=== PATIENT | female | born 1940 | race Caucasian/White ===

== ENCOUNTER → 2019-07-16 10:23 | Outpatient (CLI) | payer MEDICARE, OTHER ==
[2015-12-20 12:52] VITALS: BMI 24.8
[~2019-07-16 10:23] MED LIST: ASPIRIN325 MG PO; GLIMEPIRIDE2 MG PO; JANUVIA25 MG PO; LANTUS INSULIN10 ML SC; NORVASC10 MG; NORVASC10 MG PO; PRINIVIL20 MG PO
--- NOTE | 2019-07-18 08:45 | EC ---
PATIENT:RODOLFO YEBOAH DATE OF SERVICE: 07/16/19 SEX: F MEDICAL RECORD: [id number] DATE OF : 38 [facility] AGE OF PATIENT: 79 ADMISSION DATE: 07/16/19 REFERRING PHYSICIAN: INTERPRETING PHYSICIAN: BRIDGETT FROST MD ECHOCARDIOGRAM REPORT ECHO CHARGES 4 ECHO COMPLETE Date: 07/16/19 CLINICAL DIAGNOSIS: HTN HC OF CAD/TRACES OF MR / TR ECHOCARDIOGRAPHIC MEASUREMENTS (adult normal given) AC root (d.<3.7cm) 2.8 cm LV Septum d (<1.2 cm> 1.1 cm Valve Excursion 1.4 cm LV Septum (systole) 1.3 cm Left Atria (s.<4.0cm> 3.2 cm LVPW d(<1.2cm) 1.3 cm RV (d.<2.3cm) 3.7 cm LVPW (sytole) 1.8 cm LV diastole(<5.6CM) 4.6 cm MV E-F(>70mm/sec) cm LV systole 2.8 cm LVOT Diameter 1.4 cm MV exc.(>10mm) 1.1 cm Est.ejection fraction (50-75%) % DOPPLER: LVIT cm/sec A 125 cm/sec E 84.0 cm/sec LA cm/sec RVSP 30 mmHg LVOT 148 cm/sec AOP1/2T m/s Asc. Ao 213 cm/sec RVOT 81 cm/sec RA cm/sec PA 103 cm/sec AV Gradient Peak 18.08mmHg AV Mean 11.77mmHg AV Area 1.2 cm MV Gradient Peak 7.58 mmHg MV Mean 3.06 mmHg MV Area cm COMMENTS: Automotive Teacher: Salima PERALTA Credentialing Coordinator: 3 Dr. Hutson TAPE# PACS Pericardial Effusion N DATE OF SERVICE: 07/16/2019 Adequate 2D, color flow imaging, spectral Doppler, and M-Mode No LVH. LV internal dimensions are normal. Wall motion is normal. EF is greater than or equal to 55%. Aortic valve is tricuspid. No evidence of stenosis by Doppler interrogation. Left atrium is normal at 3.2 cm. Mitral valve shows no prolapse. Trace MR. Right-sided chambers are grossly normal. Mild TR. ECHOCARDIOGRAM REPORT [id number] RODOLFO YEBOAH TRANSINT:[id number] Voice Confirmation ID: [id number] DOCUMENT ID: [id number] BRIDGETT FROST MD at 0845 CC: [id number] DICTATION DATE: 07/17/19 1357 BRIQUETTE MACHINE OPERATOR HELPER: 07/17/19 1540 DEP CLI 07/16/19 [place] [id number] [place] [id number]
== END | disposition home or self-care (01) ==
LOC: D.HCCECHO 10:23
PROVIDERS: ATTEND Internal Medicine Interventional Cardiology
DX: I10 Essential (primary) hypertension (principal)

== ENCOUNTER 2020-06-07 15:07 | Emergency (ER) | payer MEDICARE, OTHER ==
[~2020-06-07] VITALS: Ht 160 cm; Wt 60.0 kg
[2020-06-07 15:18] VITALS: Ht 160 cm; Wt 60.0 kg
[2020-06-07] MEDS ORDERED: BAYER CHEWABLE81 MG PO (15:21)
[2020-06-07] MEDS ORDERED: TRADJENTA5 MG PO (15:22)
[2020-06-07] MEDS ORDERED: BASAGLAR K100 UNIT/1 SC (15:22)
[2020-06-07 15:56] LABS: BASOPHILS 0 % (0-2); EOSINOPHILS 0 % (0-7); HEMOGLOBIN 11.2 g/dL (12-16); IMMATURE GRANULOCYTES 0.6 % (0-5); LYMPHOCYTES 2.5 % (15-50); MCH 23.2 pg (26.0-34.0); MCV 72.5 fL (80.0-100.0); MEAN PLATELET VOLUME 9.6 fL (7.4-10.4); NEUTROPHILS 91.9 % (40-80); RBC 4.83 10x6/uL (4.00-5.40); RDW 17.1 % (11.5-14.5); WBC 14.5 10x3/uL (4.8-10.8)
[2020-06-07 15:58] LABS: PLATELET COUNT 374 10x3/uL (130-400)
[2020-06-07 16:28] LABS: ALBUMIN 2.8 g/dL (3.4-5.0); ALKALINE PHOSPHATASE 74 U/L (30-120); ALT (SGPT) 28 U/L (10-68); BILIRUBIN - TOTAL 0.48 mg/dL (0.2-1.3); CALC OSMOLALITY 270 mosm/kg (275-300); CALCIUM 8.2 mg/dL (8.5-10.1); CHLORIDE - SERUM 94 mmol/L (98-107); CKMB 1.2 U/L (0.0-3.6); CREATINE KINASE 48 UL (21-215); CREATININE - SERUM 1.4 mg/dL (0.6-1.3); MAGNESIUM - SERUM 1.9 mg/dL (1.8-2.4); POTASSIUM - SERUM 4.8 mmol/L (3.5-5.1); PROTEIN - SERUM 5.6 g/dL (6.4-8.2); SODIUM 123 mmol/L (136-145); TROPONIN-I < 0.017 ng/mL (0.000-0.060); UREA NITROGEN 25 mg/dL (7-18); eGFR NON AFRICAN AMERICAN 38 mL/min (90-120)
[2020-06-07 16:30] LABS: GLUCOSE 437 mg/dL (74-106)
[2020-06-07 16:57] LABS: BILIRUBIN NEGATIVE (NEGATIVE); GLUCOSE 1000 mg/dL (NEGATIVE); KETONE NEGATIVE (NEGATIVE); NITRITE POSITIVE (NEGATIVE); UROBILINOGEN NORMAL (NORMAL)
[2020-06-07 16:58] LABS: EPITHELIAL CELLS 0-5 /hpf (0-5); RED CELLS - URINE 0-5 /hpf (0-5); WHITE CELLS - URINE 0-5 /hpf (NEGATIVE)
[2020-06-07 16:59] LABS: BACTERIA MANY /hpf (NEGATIVE)
[2020-06-07] MEDS ORDERED: MACROBID100 MG PO (18:01)
[2020-06-07 19:15] VITALS: BP 161/79
== END 2020-06-07 19:15 | disposition home or self-care (01) ==
LOC: D.ER 15:07
PROVIDERS: Family Medicine
DX: N39.0 Urinary tract infection, site not specified (principal); E11.65 Type 2 diabetes mellitus with hyperglycemia; R53.1 Weakness; Z79.4 Long term (current) use of insulin; I10 Essential (primary) hypertension

== ENCOUNTER 2020-06-08 17:10 | Inpatient (IN) | payer MEDICARE, OTHER ==
[~2020-06-08] VITALS: Ht 160 cm; Wt 59.9 kg
[~2020-06-08 17:10] MED LIST changes: +BASAGLAR K100 UNIT/1 SC; +BAYER CHEWABLE81 MG PO; +MACROBID100 MG PO; +TRADJENTA5 MG PO
--- NOTE | 2020-06-08 17:15 | NUR ---
POC GLUCOSE 405
[2020-06-08 17:32] LABS: BASOPHILS 0 % (0-2); EOSINOPHILS 0 % (0-7); HEMATOCRIT 34.9 % (36.0-48.0); HEMOGLOBIN 11.2 g/dL (12-16); IMMATURE GRANULOCYTES 0.6 % (0-5); LYMPHOCYTES 5.7 % (15-50); MCH 23.1 pg (26.0-34.0); MCHC 32.1 g/dL (31.0-37.0); MCV 72.1 fL (80.0-100.0); MEAN PLATELET VOLUME 9.7 fL (7.4-10.4); NEUTROPHILS 90.7 % (40-80); PLATELET COUNT 355 10x3/uL (130-400); RBC 4.84 10x6/uL (4.00-5.40); RDW 17.4 % (11.5-14.5); WBC 13.5 10x3/uL (4.8-10.8)
[2020-06-08 17:48] LABS: ALBUMIN 2.8 g/dL (3.4-5.0); ANION GAP 10.6 mmol/L (8-16); BILIRUBIN - TOTAL 0.5 mg/dL (0.2-1.3); CALCIUM 8.5 mg/dL (8.5-10.1); CARBON DIOXIDE 24.2 mmol/L (21.0-32.0); CREATININE - SERUM 1.3 mg/dL (0.6-1.3); MAGNESIUM - SERUM 1.9 mg/dL (1.8-2.4); POTASSIUM - SERUM 4.8 mmol/L (3.5-5.1); PROTEIN - SERUM 5.6 g/dL (6.4-8.2)
[2020-06-08 17:56] LABS: GLUCOSE 1000 mg/dL (NEGATIVE); NITRITE NEGATIVE (NEGATIVE)
[2020-06-08 17:57] LABS: BILIRUBIN NEGATIVE (NEGATIVE); KETONE NEGATIVE (NEGATIVE); UROBILINOGEN NORMAL (NORMAL)
[2020-06-08 18:16] LABS: CKMB 1.3 U/L (0.0-3.6); CREATINE KINASE 66 UL (21-215); PRO BNP 495 pg/mL (0-450)
[2020-06-08 18:19] VITALS: BP 171/107
[2020-06-08 18:30] LABS: TROPONIN-I < 0.017 ng/mL (0.000-0.060)
--- NOTE | 2020-06-08 18:44 | NUR ---
VERIFIED WITH BEBO, BLIND HANGER RE ORDER FOR NS X 2 LITERS. ONLY 1 LITER ORDERED
--- NOTE | 2020-06-08 19:17 | NUR ---
BS REPORT TO LARRY HAAS
[2020-06-08 20:15] VITALS: BP 143/64
[2020-06-08 22:44] VITALS: BP 154/72
[2020-06-09] VITALS (7 sets, daily range): BP systolic 118–166; BP diastolic 42–89; Ht 160 cm; Wt 59.9 kg
--- NOTE | 2020-06-09 11:16 | NUR ---
RESTING IN BED, NO DISTRESS NOTED, SKIN WARM AND DRY, C/O LEGS BEING WEAK, STATES THAT SHE HAS HAD BACK SURGERY A FEW YEARS AGO, IV PER R HAND, PT TO SEE
--- NOTE | 2020-06-09 14:32 | NUR ---
SON HERE ASK IF PT GOES TO [facility]AB [facility]
[2020-06-10] VITALS: BP 131/58
[2020-06-10 04:00] VITALS: BP 158/55
--- NOTE | 2020-06-10 04:43 | NUR ---
I have reviewed this patient and I concur with the Shift Assessment completed by the Licensed Practical Nurse today this shift.
--- NOTE | 2020-06-10 07:42 | NUR ---
SHE IS ALERT, TALKING. SHE DENIES ANY NEEDS. THE CALL LIGHT IS WITHIN REACH.
--- NOTE | 2020-06-10 08:13 | HP ---
PATIENT: RODOLFO YEBOAH MEDICAL RECORD: [id number] ACCOUNT: [id number] LOCATION:[facility] Chao2203 : 38 ADMISSION DATE: 06/09/20 PCP: RONNIE MACIAS HISTORY AND PHYSICAL EXAMINATION REASON FOR ADMISSION: Uncontrolled blood sugar and weakness. HISTORY OF PRESENT ILLNESS: The patient is an 80-year-old female, type 2 diabetic, who has history of lumbar disc disease. She had received a steroid injection last week in the office for sciatica symptoms. She had felt more confused and tired since that time and went to the ER the night before last with blood sugar in excess of 400. She was given fluids and insulin and her blood sugars dropped in the 200 range and she was discharged back home. Yesterday, she was unable to control her blood sugars despite increasing her Basaglar, came back to the ER last night with a blood sugar of over 400. She was nonketotic but appeared weak and Edmar GAGNON, recommended admission. She also was noted to have UTI and was on antibiotics for that as well. She denies fever. She says she is having difficulty transferring out of bed due to the back pain. She does use a walker. PAST MEDICAL HISTORY: Breast cancer; angina pectoris; type 2 diabetes mellitus; osteoarthritis of knees, post knee replacement; essential hypertension; history of PTCA for CAD; hyperlipidemia; cataracts, both eyes, postoperative; history of recurrent complicated UTI; blood loss anemia; GERD; hyperlipidemia. PAST SURGICAL HISTORY: Had retinal surgery. Has had lumbar discectomy; appendectomy; hysterectomy; breast lumpectomy for cancer; total knee arthroplasty; PTCA times 2; cataract extraction, both eyes; and cystourethroscopy with fulguration. FAMILY HISTORY: Father of heart disease and had diabetes. Mother had breast cancer. Sister with breast cancer. She is a nonsmoker and nondrinker currently. HOME MEDICATIONS: Tramadol 50 mg q.6 for pain, Decadron 4 mg tablets tapering 1/2 tab daily for 7 days, lisinopril 20 mg a day, Basaglar 15 units subQ at bedtime, Tradjenta 5 mg p.o. daily, aspirin 81 mg daily, amlodipine 10 mg daily, omeprazole 20 mg p.o. q.a.m. a.c. ALLERGIES: PENICILLIN AND SULFA. OTHER MEDICATIONS: Currently, she is on Macrobid 100 mg b.i.d. started 2 days ago. REVIEW OF SYSTEMS: CONSTITUTIONAL: No fever, but marked weakness and confusion. HEENT: No recent visual change, sinus congestion, or sore throat. RESPIRATORY: No SOB or cough. CARDIAC: No chest pain or claudication. GASTROINTESTINAL: Some nausea without vomiting, change in stools, or constipation. GENITOURINARY: She has had urinary urgency and some dysuria. No hematuria. Denies flank pain. MUSCULOSKELETAL: Chronic lumbago with sciatica currently in the right at the level of the knee. She admits to some pain on transfers and difficulty walking HISTORY AND PHYSICAL [id number] RODOLFO YEBOAH without a rolling walker. PSYCHIATRIC: Denies depressed mood. PHYSICAL EXAMINATION: GENERAL: Alert 80-year-old female at this time, in no acute distress. VITAL SIGNS: Show temperature 98.1 Fahrenheit, pulse of 60, respirations of 18, blood pressure 134/65 with a sat of 95% on room air. HEENT: Normocephalic. Eyes are clear with lens implants, both eyes. Sclerae nonicteric. NECK: Supple. No bruits. CHEST: Clear with distant breath sounds. HEART: Regular rate and rhythm. ABDOMEN: Soft, nontender. No organomegaly or masses. GENITOURINARY: Deferred. EXTREMITIES: No CC&E. MUSCULOSKELETAL: She has some pain in the lower lumbar spine, radiates into buttocks with straight leg raise at 45 degrees. Slight decrease in strength in both quadriceps bilaterally. Evidence of previous knee arthroplasty noted. NEUROLOGICAL: Oriented to person, place, and time. Cranial nerves grossly intact. Gait is wide based and somewhat unsteady. LABORATORY DATA: White count is 13,000; H&H of 11 and 34.9. Blood sugar was 495. Cardiac enzymes were negative. Urine on 06/07 reveals bacteria and pyuria. Serum ketones were negative. Urinalysis showed 0-5 white and red cells, nitrite positive. Culture is pending. ASSESSMENT: 1. Uncontrolled diabetes mellitus. 2. Urinary tract infection. 3. Sciatica, lumbar disc disease, and steroids probably exacerbating hyperglycemia. 4. Hypertension, hyperlipidemia, history of COPD, clinically stable. PLAN: The patient will be admitted for sliding scale insulin, pain management, PT consult. NTS:[id number] Voice Confirmation ID: [id number] DOCUMENT ID: [id number] PILAR BHAT MD at 0813 CC: [id number] DICTATION DATE: 06/09/20732 COMPONENT LAB TECH: 06/09/20 213 ADM IN [place] [id number] [place] [address]
[2020-06-10 09:36] VITALS: BP 124/46
--- NOTE | 2020-06-10 12:09 | MORECARE ---
CASE MANAGEMENT DISCHARGE SUMMARY PATIENT: RODOLFO YEBOAH UNIT: [id number] ADM DATE: 06/09/20 AGE: 80 : 39 SEX: F ROOM/BED: D.2203 AUTHOR: ELIDA TORIBIO PHYSICIAN: REFERRING PHYSICIAN: RONNIE MACIAS MD DATE OF SERVICE: 06/10/20 Discharge Plan Patient Name: RODOLFO YEBOAH [facility] [facility] 1940 Planned Disposition: Residential Facility Anticipated Discharge Date: Discharge Date: Expected LOS: Initial Reviewer: [email or web address] Initial Review Date: 06/08/2020 Generated: 06/10/20 1:08 pm DCPIA - Discharge Planning Initial Assessment Updated by [email or web address]: Irene Cain on 06/10/20 12:05 pm * Is the patient Alert and Oriented? Yes * How many steps to enter\exit or inside your home? 2/RAMP * PCP [facility] * Pharmacy [facility] [address] * Preadmission Environment Home Alone * ADLs Independent * Equipment Glucometer Rolling Walker * List name and contact numbers for known caregivers / representatives who currently or will assist patient after discharge: JACKIE ( SON) [phone] * Verbal permission to speak to the caregivers and representatives has been obtained from the patient. N/A * Community resources currently utilized None * Additional services required to return to the preadmission environment? Yes * Can the patient safely return to the preadmission environment? Yes * Has this patient been hospitalized within the prior 30 days at any hospital? No Patient Name: RODOLFO YEBOAH Page 12250 at 1209 All edits/amendments must be made on the electronic document DICTATION DATE: 06/10/20 1208 PARKING METER MECHANIC: DAMIÁN 06/10/20 1208 RPT#: [id number] DC DATE: STATUS: ADM IN [facility] [address] [place] [address] END OF REPORT
--- NOTE | 2020-06-10 12:16 | MORECARE ---
CASE MANAGEMENT DISCHARGE SUMMARY PATIENT: RODOLFO YEBOAH UNIT: [id number] ADM DATE: 06/09/20 AGE: 80 : 39 SEX: F ROOM/BED: D.2203 AUTHOR: MALU,DOC PHYSICIAN: REFERRING PHYSICIAN: RONNIE MACIAS MD DATE OF SERVICE: 06/10/20 Discharge Plan Patient Name: RODOLFO EYBOAH Facility: [facility]:[place] : 1940 Planned Disposition: Fpc Facility Anticipated Discharge Date: Discharge Date: Expected LOS: Initial Reviewer: [email or web address] Initial Review Date: 06/08/2020 Generated: 06/10/20 1:15 pm Comments DCP- Discharge Planning Updated by [email or web address]: Irene Cain on 06/10/20 11:[address] Patient Name: RODOLFO YEBOAH Admission Status: ER Accout number: [id number] Admission Date: 06-09-2020 : 1940 Admission Diagnosis: Attending: RONNIE MACIAS Current LOS: 1 Anticipated DC Date: Planned Disposition: Fpc Facility Primary Insurance: MEDICARE A & B Discharge Planning Comments: CM met with patient & son to complete initial dc planning assessment. CM educated patient on the CM role and verbal consent given by patient to complete assessment. Patient lives at home alone where she was independent with her care. At discharge patient plans to return home after rehab and feels this is a safe discharge. CM discussed availability of home health, rehab services, and medical equipment. They would like to go to [facility]hab [facility] when she is discharged from the hospital. I will send referral to [facility]. IMM signed and served, BENY also signed and served. Patient denied known discharge needs at this time. CM will continue to follow and will assist as needed with dc plans/needs. Plant Etiologist: Irene Cain DCPIA - Discharge Planning Initial Assessment Updated by [email or web address]: Irene Cain on 06/10/20 12:05 pm * Is the patient Alert and Oriented? Yes * How many steps to enter\exit or inside your home? 2/RAMP * PCP [facility] * Pharmacy [facility] [address] * Preadmission Environment Home Alone * ADLs Independent * Equipment Glucometer Rolling Walker * List name and contact numbers for known caregivers / representatives who currently or will assist patient after discharge: JACKIE ( SON) [phone] * Verbal permission to speak to the caregivers and representatives has been obtained from the patient. N/A * Community resources currently utilized None * Additional services required to return to the preadmission environment? Yes * Can the patient safely return to the preadmission environment? Yes * Has this patient been hospitalized within the prior 30 days at any hospital? No External Providers External Provider: [facility] Next Contact Date: Service Request Date: Service Type: Resolution: Reviewer: Comments: Coverage Notice Reviewer: [email or web address] Traci Cain Notice Issued Date-Time: 06/10/2020 10:50 Notice Type: IM Discharge Notice Notice Delivered To: Patient Relationship to Patient: Outside Installer Apprentice Name: Delivery Method: HAND - Hand Delivered Aziza Days: Prior Verbal Notification: Recipient Understood Notice: Yes Recipient Signature: Yes Med Rec Note Co-signed by Attending: Coverage Notice Comment: Reviewer: [email or web address] Cain Notice Issued Date-Time: 06/10/2020 10:50 Notice Type: Patient Choice Letter Notice Delivered To: Patient Relationship to Patient: Outside Installer Apprentice Name: Delivery Method: HAND - Hand Delivered Aziza Days: Prior Verbal Notification: Recipient Understood Notice: Yes Recipient Signature: Yes Med Rec Note Co-signed by Attending: Coverage Notice Comment: BENY Glaser DP export: 06/10/20 11:09 am Patient Name: RODOLFO YEBOAH Page [id number] at 1216 All edits/amendments must be made on the electronic document DICTATION DATE: 06/10/20 1216 BUSINESS PROCESS MODELER: DAMIÁN 06/10/20 1216 RPT#: [id number] DC DATE: STATUS: ADM IN [facility] [address] [place] [address] END OF REPORT
[2020-06-10 12:51] VITALS: BP 161/57
[2020-06-10 17:53] VITALS: BP 137/70
--- NOTE | 2020-06-10 19:39 | NUR ---
22 G IV TO THE RIGHT ARM. SCD'S ON NEED A MACHINE IN THE ROOM.
[2020-06-10 20:00] VITALS: BP 152/67
[2020-06-11] VITALS: BP 144/55
[2020-06-11 04:00] VITALS: BP 156/58
[2020-06-11 06:49] LABS: ANION GAP 12.3 mmol/L (8-16); CALCIUM 7.7 mg/dL (8.5-10.1); CARBON DIOXIDE 24.2 mmol/L (21.0-32.0); POTASSIUM - SERUM 4.5 mmol/L (3.5-5.1)
[2020-06-11] MEDS ORDERED: LISINOPRIL10 MG PO (07:34)
[2020-06-11] MEDS ORDERED: LANTUS INS100 UNITS/ SC (07:35)
[2020-06-11 09:43] VITALS: BP 160/57
--- NOTE | 2020-06-11 10:23 | MORECARE ---
CASE MANAGEMENT DISCHARGE SUMMARY PATIENT: RODOLFO YEBOAH UNIT: [id number] ADM DATE: 06/09/20 AGE: 80 : 39 SEX: F ROOM/BED: D.2203 AUTHOR: MALU,DOC PHYSICIAN: REFERRING PHYSICIAN: RONNIE MACIAS MD DATE OF SERVICE: 06/11/20 Discharge Plan Patient Name: RODOLFO YEBOAH Facility: [facility]:[place] : 1940 Planned Disposition: Group Home Facility Anticipated Discharge Date: Discharge Date: Expected LOS: Initial Reviewer: [email or web address] Initial Review Date: 06/08/2020 Generated: 06/11/20 11:22 am Comments DCP- Discharge Planning Updated by [id number]: Irene Cain on 06/11/20 9:[address] PER [facility] AT [facility] THEY WILL NOT HAVE ANY BEDS TILL NEXT WED AT THE [facility] DR BHAT SPOKE WITH PATIENT ABOUT INPATIENT REHAB AT [facility] AND THE PATIENT IS AGREEABLE PATIENT WILL BE DISCHARGED TO INPATIENT REHAB TODAY DCP- Discharge Planning Updated by [email or web address]: Irene Cain on 06/10/20 11:[address] Patient Name: RODOLFO YEBOAH Admission Status: ER Accout number: [id number] Admission Date: 06-09-2020 : 1940 Admission Diagnosis: Attending: RONNIE MACIAS Current LOS: 1 Anticipated DC Date: Planned Disposition: Group Home Facility Primary Insurance: MEDICARE A & B Discharge Planning Comments: CM met with patient & son to complete initial dc planning assessment. CM educated patient on the CM role and verbal consent given by patient to complete assessment. Patient lives at home alone where she was independent with her care. At discharge patient plans to return home after rehab and feels this is a safe discharge. CM discussed availability of home health, rehab services, and medical equipment. They would like to go to rehab [facility] when she is discharged from the hospital. I will send referral to [facility]. IMM signed and served, BENY also signed and served. Patient denied known discharge needs at this time. CM will continue to follow and will assist as needed with dc plans/needs. Foot Worker: Irene Cain DCPIA - Discharge Planning Initial Assessment Updated by [email or web address]: Irene Cain on 06/10/20 12:05 pm * Is the patient Alert and Oriented? Yes * How many steps to enter\exit or inside your home? 2/RAMP * PCP [facility] * Pharmacy [facility] [address] * Preadmission Environment Home Alone * ADLs Independent * Equipment Glucometer Rolling Walker * List name and contact numbers for known caregivers / representatives who currently or will assist patient after discharge: JACKIE ( SON) [phone] * Verbal permission to speak to the caregivers and representatives has been obtained from the patient. N/A * Community resources currently utilized None * Additional services required to return to the preadmission environment? Yes * Can the patient safely return to the preadmission environment? Yes * Has this patient been hospitalized within the prior 30 days at any hospital? No Coverage Notice Reviewer: [id number] Traci Cain Notice Issued Date-Time: 06/10/2020 10:50 Notice Type: IM Discharge Notice Notice Delivered To: Patient Relationship to Patient: Assembly Line Brazer Name: Delivery Method: HAND - Hand Delivered Aziza Days: Prior Verbal Notification: Recipient Understood Notice: Yes Recipient Signature: Yes Med Rec Note Co-signed by Attending: Coverage Notice Comment: Reviewer: [id number] Traci Cain Notice Issued Date-Time: 06/10/2020 10:50 Notice Type: Patient Choice Letter Notice Delivered To: Patient Relationship to Patient: Assembly Line Brazer Name: Delivery Method: HAND - Hand Delivered Aziza Days: Prior Verbal Notification: Recipient Understood Notice: Yes Recipient Signature: Yes Med Rec Note Co-signed by Attending: Coverage Notice Comment: BENY WITH MARYSE Glaser DP export: 06/10/20 11:16 am Patient Name: RODOLFO YEBOAH Page 59412 at 1023 All edits/amendments must be made on the electronic document DICTATION DATE: 06/11/20 1022 INTERLIBRARY LOAN SPECIALIST: DAMIÁN 06/11/20 1022 RPT#: [id number] DC DATE: STATUS: ADM IN [facility] [address] [place] [address] END OF REPORT
--- NOTE | 2020-06-11 12:24 | NUR ---
PATIENT IN BED. FAMILY AT BEDSIDE. DENIES PAIN OR NEEDS. BED LOW POSITION, CALL LIGHT IN REACH. WILL CONTINUE TO MONITOR.
--- NOTE | 2020-06-11 12:33 | NUR ---
Rehab Note- Acute Inpatient REhab prescreen order recieved. THe patient is a good inpatient rehab candidate when medically stable and ready for discharge from the acute hospital. Spoke with CARMINA Hewitt. Thank you for this referral! Izzy Tian RN Clinical Liaison, [facility]
[2020-06-11 13:29] VITALS: BP 146/56
--- NOTE | 2020-06-11 15:10 | NUR ---
DISCHARGE INSTRUCTIONS COMPLETE. NOT FURTHER QUESTIONS. IV DISCONTINUED, CATH TIP INTACT. PATIENT TO REHAB UNIT VIA WHEELCHAIR.
--- NOTE | 2020-06-11 15:35 | NUR ---
OT NOTE: PT COMPLETED SUPINE TO SIT WITH SBA. PT COMPLETED EOB SITTING WITH SPV. PT COMPLETED SIT TO STAND WITH CGA. PT COMPLETED ADL MOB WITH CGA. PT COMPLETED LEDY SOCKS WITH SETUP. PT COMPLETED UE AROM TOLERATED. [phone] THANK YOU,BRIELLE KEMP
[2020-06-11] MEDS ORDERED: ULTRAM50 MG PO (17:19)
[2020-06-11] MEDS ORDERED: HUMULIN R100 UNIT/1 SC (17:20)
--- NOTE | 2020-06-12 12:59 | MORECARE ---
CASE MANAGEMENT DISCHARGE SUMMARY PATIENT: RODOLFO YEBOAH UNIT: [id number] ADM DATE: 06/09/20 AGE: 80 : 39 SEX: F ROOM/BED: D.2203 AUTHOR: MALU,DOC PHYSICIAN: REFERRING PHYSICIAN: RONNIE MACIAS MD DATE OF SERVICE: 06/12/20 Discharge Plan Patient Name: RODOLFO YEBOAH Facility: [facility]:[place] : 1940 Planned Disposition: Care Home Facility Anticipated Discharge Date: Discharge Date: 06/11/2020 Expected LOS: Initial Reviewer: [id number] Initial Review Date: 06/08/2020 Generated: 06/12/20 1:59 pm Comments DCP- Discharge Planning Updated by [email or web address]: Irene Cain on 06/11/20 9:[address] PER YESSI AT [facility] THEY WILL NOT HAVE ANY BEDS TILL NEXT WED AT THE [facility] DR BHAT SPOKE WITH PATIENT ABOUT INPATIENT REHAB AT [facility] AND THE PATIENT IS AGREEABLE PATIENT WILL BE DISCHARGED TO INPATIENT REHAB TODAY DCP- Discharge Planning Updated by [id number]: Irene Cain on 06/10/20 11:[address] Patient Name: RODOLFO YEBOAH Admission Status: ER Accout number: [id number] Admission Date: 06-09-2020 : 1940 Admission Diagnosis: Attending: RONNIE MACIAS Current LOS: 1 Anticipated DC Date: Planned Disposition: Care Home Facility Primary Insurance: MEDICARE A & B Discharge Planning Comments: CM met with patient & son to complete initial dc planning assessment. CM educated patient on the CM role and verbal consent given by patient to complete assessment. Patient lives at home alone where she was independent with her care. At discharge patient plans to return home after rehab and feels this is a safe discharge. CM discussed availability of home health, rehab services, and medical equipment. They would like to go to rehab [place] when she is discharged from the hospital. I will send referral to Yessi. IMM signed and served, BENY also signed and served. Patient denied known discharge needs at this time. CM will continue to follow and will assist as needed with dc plans/needs. It Trainee: Irene Cain DCPIA - Discharge Planning Initial Assessment Updated by [id number]: Irene Cain on 06/10/20 12:05 pm * Is the patient Alert and Oriented? Yes * How many steps to enter\exit or inside your home? 2/RAMP * PCP [facility] * Pharmacy [facility] [address] * Preadmission Environment Home Alone * ADLs Independent * Equipment Glucometer Rolling Walker * List name and contact numbers for known caregivers / representatives who currently or will assist patient after discharge: JACKIE ( SON) [phone] * Verbal permission to speak to the caregivers and representatives has been obtained from the patient. N/A * Community resources currently utilized None * Additional services required to return to the preadmission environment? Yes * Can the patient safely return to the preadmission environment? Yes * Has this patient been hospitalized within the prior 30 days at any hospital? No Coverage Notice Reviewer: [id number] Traci Cain Notice Issued Date-Time: 06/10/2020 10:50 Notice Type: IM Discharge Notice Notice Delivered To: Patient Relationship to Patient: Mold Capper Name: Delivery Method: HAND - Hand Delivered Aziza Days: Prior Verbal Notification: Recipient Understood Notice: Yes Recipient Signature: Yes Med Rec Note Co-signed by Attending: Coverage Notice Comment: Reviewer: [id number] Traci Cain Notice Issued Date-Time: 06/10/2020 10:50 Notice Type: Patient Choice Letter Notice Delivered To: Patient Relationship to Patient: Mold Capper Name: Delivery Method: HAND - Hand Delivered Aziza Days: Prior Verbal Notification: Recipient Understood Notice: Yes Recipient Signature: Yes Med Rec Note Co-signed by Attending: Coverage Notice Comment: BENY WITH MARYSE Glaser DP export: 06/11/20 9:23 am Patient Name: RODOLFO YEBOAH Page [phone] at 1259 All edits/amendments must be made on the electronic document DICTATION DATE: 06/12/20 1259 GLASS CHECKER: DAMIÁN 06/12/20 1259 RPT#: [id number] DC DATE:06/11/20 STATUS: DIS IN [facility] [address] [place] [address] END OF REPORT
== END 2020-06-11 15:10 | DRG 638 ==
LOC: D.ER 17:10 → D.MS 21:07 → OBSVTIME 06-09 18:43 → D.MS 06-09 18:47
PROVIDERS: Family Medicine; ADMIT Family Medicine; ATTEND Family Medicine
DX: E11.65 Type 2 diabetes mellitus with hyperglycemia (principal); N39.0 Urinary tract infection, site not specified; E87.1 Hypo-osmolality and hyponatremia; M54.30 Sciatica, unspecified side; M54.16 Radiculopathy, lumbar region; R53.1 Weakness

== ENCOUNTER 2020-06-11 15:44 | Inpatient (IN) | payer MEDICARE, OTHER ==
[~2020-06-11] VITALS: Ht 160 cm; Wt 59.9 kg
--- NOTE | ~2020-06-11 | RHP ---
PATIENT: RODOLFO YEBOAH MEDICAL RECORD: [id number] ACCOUNT: [id number] LOCATION:[facility] [id number] : [birth year] ADMISSION DATE: 06/11/20 REHABILITATION HISTORY AND PHYSICAL EXAMINATION POST ADMISSION PHYSICIAN EXAMINATION POST ADMISSION PHYSICAL EXAMINATION AND HISTORY AND PHYSICAL ADMITTING DIAGNOSIS: Spinal cord dysfunction. HISTORY OF PRESENT ILLNESS: The patient is an 80-year-old female patient who presented to the Emergency Room with generalized weakness. She is a diabetic and she is also on insulin. She reported that she had been recently having problems with sciatica. She had received 2 steroid injections. The patient was diagnosed with UTI prior to coming in. She had a steroid injection in her back a week before. The patient had been more confused and tired since her injection. The patient had refused acute hospital admit acutely, but discharged back home and was brought back to the hospital. She has been participating in physical therapy with her acute hospital stay. Has been progressing well. She needs to be monitored closely for blood sugars. The patient has also been having some problems with pain control. We will monitor her for any signs of neurological changes. Doing medication adjustments. She is on electrolyte protocol. She has proximal muscle weakness, balance deficits, decreased activity tolerance, impaired mobility, decreased range of motion, decreased strength. She fatigues easily, got inability to care for self. These are all barriers to her discharge home. She lives at home alone, was independent with ADLs and mobility prior to this. She currently set up for mod assist for ADLs and mod assist for mobility. She and her family would like for her to return home at her prior level of functioning. COMORBIDITIES: Include weakness, UTI, hyperglycemia, hyponatremia, generalized weakness, lumbar disc disease, and radiculopathy. PAST MEDICAL HISTORY: Significant for breast cancer, history of angina, diabetes, osteoarthritis, essential hypertension, hyperlipidemia, cataracts, recent UTI, hyperlipidemia and neuropathy. PAST SURGICAL HISTORY: Includes a retinal surgery, lumbar discectomy, appendectomy, hysterectomy, breast lumpectomy, total knee replacement. She has had PTCA times 2, cataract extraction and a cystourethroscopy for treatment in the past. ALLERGIES: PENICILLIN AND SULFA. CURRENT MEDICATIONS: Include lisinopril 40 mg daily, Tradjenta 5 mg daily, aspirin 81 mg daily, amlodipine 10 mg daily, insulin Lantus 12 units subQ daily. She is on a regular insulin sliding scale, tramadol 50 mg q.6 hours p.r.n., and MiraLax 17 grams in 8 ounces of water daily. HABITS: No alcohol or tobacco use. FAMILY HISTORY: Noncontributory. SOCIAL HISTORY: The patient hopes to return back home and get back to her prior level of functioning. HISTORY AND PHYSICAL [id number] RODOLFO YEBOAH REVIEW OF SYSTEMS: GENERAL: Does complain of weakness and fatigue. HEENT: Denies cold, cough, or congestion. CARDIOVASCULAR: Denies any chest pain. PHYSICAL EXAMINATION: VITAL SIGNS: Stable, afebrile. GENERAL: Elderly female, in no acute distress upon exam. HEENT: Normocephalic and atraumatic. Mucosa moist. NECK: Supple. No lymphadenopathy. LUNGS: Clear in upper jett. No rales. HEART: Regular rate and rhythm. She does have a holosystolic murmur. ABDOMEN: Soft, benign, and nondistended. Positive bowel sounds times 4. EXTREMITIES: No clubbing, cyanosis or edema. NEUROLOGIC: She does have proximal muscle weakness. She is a little bit deconditioned. LABORATORY DATA: White count is 10.7, H&H of 12 and 39, platelet count is 311. Her sodium is 138, potassium 4.3, BUN and creatinine of 13 and 1.0 and blood sugar is noted to be 109. Her INR today is 0.95. 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 The patient has potential to make improvement. We instituted the following multidisciplinary therapies including, but not limited to physical, occupational, respiratory, speech, nutritional services, prosthetics and orthotics. Given her complex medical condition and risks for more complications, rehabilitation services cannot be provided at a low level of care such as skilled nurse facility. PLAN: 1. Admit to [facility] for intensive inpatient therapy to include the following disciplines; A. Physical therapy to improve gait, all transfer skills and bed mobility to a modified independent level. B. Occupational therapy to improve activities of daily living. C. Case management to help with discharge planning and placement options. D. Nutrition to assist with nutritional needs. E. Rehabilitation nursing to assist in monitoring the patient's underlying medical conditions and to assist with any type of bowel or bladder management. 2. The patient's current medication and medical care will be continued. 3. The patient will be placed on standard fall precautions. 4. The patient's estimated length of stay is approximately 7-10 days. 5. We will discuss the patient during care team staff meeting this week. TRANSINT:[id number] Voice Confirmation ID: [id number] DOCUMENT ID: [id number] MARISOL notes whether there has been none or any medical/functional change since admission: - No change since preadmission screen. MARISOL attests patient continues to be appropriate for IRF: - Continues to be appropriate. HISTORY AND PHYSICAL [id number] RODOLFO YEBOAH,RONNIE BOURGEOIS MD CC: [id number] DICTATION DATE: 06/12/20 1309 BAND DIRECTOR: 06/12/20 190 ADM IN [place] [id number] [place] [id number]
[~2020-06-11 15:44] MED LIST changes: +LANTUS INS100 UNITS/ SC; +LISINOPRIL10 MG PO
--- NOTE | 2020-06-11 17:09 | NUR ---
PT RESTING IN BED WITH EYES OPEN CALL LIGHT IN REACH WILL MONITER
[2020-06-11] MEDS ORDERED: ULTRAM50 MG PO (17:19)
[2020-06-11] MEDS ORDERED: HUMULIN R100 UNIT/1 SC (17:20)
[2020-06-11 19:38] VITALS: BP 165/77
--- NOTE | 2020-06-11 19:49 | NUR ---
ADMIT TO [facility]. AWAKE AND ALERT. RESPIRAITONS UNLABORED. NOTED HX OF LUMBAR DISC DISEASE, DM, AND UTI. ORIENTED TO USE OF CALL LIGHT. NO ACUTE DISTRESS NOTED. SEE ADMISSION ASSESSMENT AND HISTORY.
[2020-06-11 21:08] VITALS: BP 165/77; BMI 23.4
--- NOTE | 2020-06-12 01:37 | NUR ---
SLEEPING WITH RESPRIAITONS UNLABORED. NO DISTRESS NOTED. CALL LIGHT IN REACH.
--- NOTE | 2020-06-12 04:56 | NUR ---
ASSISTED TO BATHROOM AND BACK TO BED. NO ACUTE DISTRESS NOTED.
[2020-06-12 07:05] LABS: BASOPHILS 0.1 % (0-2); EOSINOPHILS 2.6 % (0-7); HEMATOCRIT 39.1 % (36.0-48.0); HEMOGLOBIN 12.3 g/dL (12-16); IMMATURE GRANULOCYTES 0.7 % (0-5); MCH 23.4 pg (26.0-34.0); MCHC 31.5 g/dL (31.0-37.0); MCV 74.5 fL (80.0-100.0); MEAN PLATELET VOLUME 9.6 fL (7.4-10.4); NEUTROPHILS 75.6 % (40-80); PLATELET COUNT 311 10x3/uL (130-400); RBC 5.25 10x6/uL (4.00-5.40); RDW 18.7 % (11.5-14.5); WBC 10.7 10x3/uL (4.8-10.8)
[2020-06-12 07:15] LABS: ANION GAP 13.8 mmol/L (8-16); CALCIUM 8.1 mg/dL (8.5-10.1); CARBON DIOXIDE 24.5 mmol/L (21.0-32.0); POTASSIUM - SERUM 4.3 mmol/L (3.5-5.1)
[2020-06-12 07:17] LABS: INR 0.95 (0.85-1.17); PROTIME 12.6 SECONDS (11.6-15.0)
--- NOTE | 2020-06-12 08:00 | NUR ---
UP IN W/C WITH THERAPY, DENIES ANY NEEDS AT THIS TIME.
[2020-06-12 10:06] VITALS: BP 130/54
[2020-06-12 10:33] VITALS: Ht 160 cm; Wt 59.9 kg
--- NOTE | 2020-06-12 12:00 | NUR ---
I have reviewed this patient and I concur with the Shift Assessment completed by the Licensed Practical Nurse today this shift.
--- NOTE | 2020-06-12 12:10 | NUR ---
SITTING UP IN BED EATING LUNCH, DENIES ANY NEEDS AT THIS TIME, C/L AND FLUIDS IN REACH.
--- NOTE | 2020-06-12 15:57 | NUR ---
RESTING IN BED WATCHING TV, DENIES ANY NEEDS AT THIS TIME, C/L AND FLUIDS IN REACH.
[2020-06-12 18:50] VITALS: BP 142/57
--- NOTE | 2020-06-12 18:50 | NUR ---
RECEIVED PT LYING IN BED WATCHING TV. ALERT AND ORIENTED X4. DENIES ANY NEEDS OR PAIN. NO SIGNS OF ACUTE DISTRESS NOTED. VS STABLE. SHIFT ASSESSMENT COMPLETE. CALL LIGHT WITHIN REACH. FALL PRECAUTIONS IN PLACE. CPOC
--- NOTE | 2020-06-12 23:12 | NUR ---
PT LYING IN BED EYES CLOSED RESTING. RR EVEN AND UNLABORED. CALL LIGHT WITHIN REACH. FALL PRECAUTIONS IN PLACE. CPOC
--- NOTE | 2020-06-13 01:19 | NUR ---
PT LYING IN BED ON LEFT SIDE EYES CLOSED RESTING. NO SIGNS OF ACUTE DISTRESS NOTED. CALL LIGHT WITHIN REACH. WILL CONTINUE TO MONITOR
--- NOTE | 2020-06-13 05:00 | NUR ---
ASSISTED PT TO RESTROOM AND BACK TO BED WITH SBA. DENIES ANY PAIN OR NEEDS. NO ACUTE CHANGES IN CONDITION NOTED THIS SHIFT. CALL LIGHT AND WATER WITHIN REACH. FALL PRECAUTIONS IN PLACE. CPOC
--- NOTE | 2020-06-13 07:50 | NUR ---
SITTING UP IN BED EATING BREAKFAST, DENIES ANY NEEDS AT THIS TIME, C/L AND FLUIDS IN REACH.
[2020-06-13 08:26] VITALS: BP 151/70
--- NOTE | 2020-06-13 10:00 | NUR ---
I have reviewed this patient and I concur with the Shift Assessment completed by the Licensed Practical Nurse today this shift.
--- NOTE | 2020-06-13 12:16 | NUR ---
SITTING UP IN BED EATING LUNCH, DENIES ANY NEEDS AT THIS TIME, C/L AND FLUIDS IN REACH.
--- NOTE | 2020-06-13 16:04 | NUR ---
RESTING IN BED WATCHING TV, DENIES ANY NEEDS AT THIS TIME, C/L AND FLUIDS IN REACH.
[2020-06-13 19:00] VITALS: BP 140/58
--- NOTE | 2020-06-13 19:00 | NUR ---
RECEIVED PT LYING IN BED WATCHING TV. ALERT AND ORIENTED X4. DENIES ANY PAIN OR NEEDS. NO SIGNS OF ACUTE DISTRESS NOTED. VS STABLE. SHIFT ASSESSMENT COMPLETE. CALL LIGHT WITHIN REACH. FALL PRECAUTIONS IN PLACE. CPOC
--- NOTE | 2020-06-13 23:30 | NUR ---
PT LYING IN BED EYES CLOSED RESTING. RR EVEN AND UNLABORED. CALL LIGHT WITHIN REACH. FALL PRECAUTIONS IN PLACE. CPOC
--- NOTE | 2020-06-14 01:48 | NUR ---
PT LYING IN BED ON RIGHT SIDE EYES CLOSED RESTING QUIETLY. NO SIGNS OF ACUTE DISTRESS NOTED. CALL LIGHT WITHIN REACH. WILL CONTINUE TO MONITOR
--- NOTE | 2020-06-14 02:45 | NUR ---
ASSISTED PT TO RESTROOM AND BACK TO BED WITH SBA. DENIES ANY OTHER NEEDS OR PAIN. CALL LIGHT WITHIN REACH. WILL CONTINUE TO MONITOR
--- NOTE | 2020-06-14 06:33 | NUR ---
PT LYING IN BED ON LEFT SIDE AWAKE. FSBS 101. DENIES ANY NEEDS. NO ACUTE CHANGES IN CONDITION THIS SHIFT. CALL LIGHT WITHIN REACH. FALL PRECAUTIONS IN PLACE. CPOC
[2020-06-14 07:23] LABS: ANION GAP 12.3 mmol/L (8-16); BASOPHILS 0.2 % (0-2); CALCIUM 7.7 mg/dL (8.5-10.1); CARBON DIOXIDE 22.5 mmol/L (21.0-32.0); EOSINOPHILS 2.2 % (0-7); HEMATOCRIT 34.3 % (36.0-48.0); HEMOGLOBIN 10.7 g/dL (12-16); IMMATURE GRANULOCYTES 0.3 % (0-5); LYMPHOCYTES 12.2 % (15-50); MCH 23.1 pg (26.0-34.0); MCHC 31.2 g/dL (31.0-37.0); MCV 73.9 fL (80.0-100.0); MEAN PLATELET VOLUME 9.9 fL (7.4-10.4); MONOCYTES 12.3 % (2-11); NEUTROPHILS 72.8 % (40-80); PLATELET COUNT 274 10x3/uL (130-400); POTASSIUM - SERUM 3.8 mmol/L (3.5-5.1); RBC 4.64 10x6/uL (4.00-5.40); RDW 18.7 % (11.5-14.5); WBC 9.4 10x3/uL (4.8-10.8)
--- NOTE | 2020-06-14 08:06 | NUR ---
SITTING UP IN BED EATING BREAKFAST, DENIES ANY NEEDS AT THIS TIME, C/L AND FLUIDS IN REACH.
[2020-06-14 08:11] VITALS: BP 155/75
--- NOTE | 2020-06-14 12:00 | NUR ---
SITTING UP IN BED EATING LUNCH, DENIES ANY NEEDS AT THIS TIME, C/L AND FLUIDS IN REACH.
--- NOTE | 2020-06-14 16:00 | NUR ---
RESTING IN BED WATCHING TV, DENIES ANY NEEDS AT THIS TIME, C/L AND FLUIDS IN REACH.
[2020-06-14 19:49] VITALS: BP 115/61
--- NOTE | 2020-06-14 19:54 | NUR ---
AWAKE AND ALERT. RESTING IN BED WITH RESPIRATIONS UNLABORED. DRESSING TO RIGHT BKA INTACT. REMINDED OF NPO AFTER MIDNIGHT. NO NEEDS VOICED.
--- NOTE | 2020-06-14 19:55 | NUR ---
AWAKE AND ALERT. RESTING IN BED WITH RESPIRATIONS UNLABOREDD. NO DISTRESS NOTED. CALL LIGHT IN REACH.
--- NOTE | 2020-06-15 01:10 | NUR ---
ASSISTED TO BATHROOM AND BACK TO BED. NO DISTRESS NOTED.
--- NOTE | 2020-06-15 05:21 | NUR ---
QUIET HOURS. NO ACUTE CHANGES IN CONDITION THIS SHIFT. RESTING IN BED WITH NO DISTRESS NOTED.
--- NOTE | 2020-06-15 05:32 | NUR ---
ASSISTED TO BATHROOM AND BACK TO BED. CHECKED AM BLOOD SUGAR. NOTED BLOOD SUGAR 64. SNACK AND ORANGE JUICE GIVEN. ALERT AND ORIENTED. SKIN WARM AND DRY RESPIRATIONS UNLABORED. NO DISTRESS NOTED.
--- NOTE | 2020-06-15 08:00 | NUR ---
PT RESTING IN BED WITH EYES OPEN CALL LIGHT IN REACH NO PROBLEMS WILL MONITER
--- NOTE | 2020-06-15 13:56 | NUR ---
Nutrition Follow-up: Diet: Diabetic PO intake: ~67% average x last 9 meals. She states that her appetite is "good" and that she likes the food here. Reports that her last BM was yesterday AM. Last BM: 06/14/20. Wt: 132# (06/12/20) Meds ntoed: catalino lai, SSI. Labs noted: POC Glu 64(L) Recommend continue current diet. RD following.
[2020-06-15 16:17] VITALS: BP 150/82
--- NOTE | 2020-06-15 17:43 | NUR ---
PT RESTING IN BED WITH EYES OPEN CALL LIGHT IN REACH WILL MONITER
--- NOTE | 2020-06-15 19:45 | NUR ---
AWAKE AND ALERT. RESTING IN BED WITH RESPIRATIONS UNLABORED. NO DISTRESS NOTED. CALL LIGHT IN REACH.
[2020-06-15 19:57] VITALS: BP 130/72
--- NOTE | 2020-06-16 00:50 | NUR ---
ASSISTED TO BATHROOM AND BACK TO BED. RESTING QUIETLY.
--- NOTE | 2020-06-16 05:13 | NUR ---
QUIET HOURS. NO ACUTE CHANGES IN CONDITION THIS SHIFT. RESTING IN BED WITH NO DISTRESS NOTED.
[2020-06-16 06:26] LABS: ANION GAP 11.4 mmol/L (8-16); CARBON DIOXIDE 24.5 mmol/L (21.0-32.0); CREATININE - SERUM 0.9 mg/dL (0.6-1.3); POTASSIUM - SERUM 3.9 mmol/L (3.5-5.1)
[2020-06-16 06:42] LABS: BASOPHILS 0.2 % (0-2); EOSINOPHILS 4.3 % (0-7); HEMATOCRIT 39.5 % (36.0-48.0); HEMOGLOBIN 12.5 g/dL (12-16); IMMATURE GRANULOCYTES 0.8 % (0-5); LYMPHOCYTES 13.3 % (15-50); MCH 23.5 pg (26.0-34.0); MCHC 31.6 g/dL (31.0-37.0); MCV 74.4 fL (80.0-100.0); MEAN PLATELET VOLUME 9.4 fL (7.4-10.4); MONOCYTES 11.7 % (2-11); NEUTROPHILS 69.7 % (40-80); PLATELET COUNT 243 10x3/uL (130-400); RBC 5.31 10x6/uL (4.00-5.40); RDW 18.8 % (11.5-14.5); WBC 8.6 10x3/uL (4.8-10.8)
--- NOTE | 2020-06-16 07:24 | NUR ---
PT RESTING IN BED WITH EYES OPEN CALL LIGHT IN REACH WILL MONITER
--- NOTE | 2020-06-16 12:38 | NUR ---
I have reviewed this patient and I concur with the Shift Assessment completed by the Licensed Practical Nurse today this shift.
--- NOTE | 2020-06-16 17:25 | NUR ---
PT RESTING IN BED WITH EYES OPEN CALL LIGHT IN REACH WILL MONITER
[2020-06-16 19:50] VITALS: BP 167/55
--- NOTE | 2020-06-16 19:50 | NUR ---
ASSESSMENT PER FLOW SHEET, VS OBTAINED, PT UP TO BR VIA WC WITH ASSISTANCE, PT VOIDED WITH NO DIFFICULTY, PT BACK TO BED, PT REPORTS FLATUS, AND BM TODAY, RATES BACK PAIN 5/10, REQUESTESS PAIN MED WHEN DUE, INFORMED PT THAT I WILL CHECK ON THAT AND BRING IT IN WHEN DUE, PT VERBALIZES UNDERSTANDING, FRESH H20 SERVED, FALL PRECAUTIONS IN PLACE
--- NOTE | 2020-06-16 21:39 | NUR ---
PT AWAKE, OBTAINED FSBS, ADM TRAMADOL PO PER MD ORDERS, SEE EMAR, PT DENIES FURTHER NEEDS
--- NOTE | 2020-06-16 21:45 | NUR ---
PT FAMILY CONSULTANT LIGHT, PT UP TO BR VIA WC WITH ASSISTANCE, VOIDED WITH NO DIFFICULTY, PT BACK TO BED, DENIES FURTHER NEEDS
--- NOTE | 2020-06-16 23:00 | NUR ---
PT RESTING WITH EYES CLOSED, RESP QUIET, NO DISTRESS NOTED, LEFT UNDISTURBED AT THIS TIME, FALL PRECAUTIONS IN PLACE
--- NOTE | 2020-06-17 00:28 | NUR ---
PT RESTING WITH EYES CLOSED, RESP QUIET, NO DISTRESS NOTED, LEFT UNDISTURBED AT THIS TIME, FALL PRECAUTIONS IN PLACE
--- NOTE | 2020-06-17 00:52 | NUR ---
PT DEVELOPMENT VICE PRESIDENT LIGHT, PT UP TO BR VIA WC WITH ASSISTANCE, VOIDED WITH NO DIFFICULTY, PT BACK TO BED, DENIES FURTHER NEEDS OR PAIN AT THIS TIME, FALL PRECAUTIONS IN PLACE
--- NOTE | 2020-06-17 02:43 | NUR ---
PT RESTING WITH EYES CLOSED, RESP QUIET, NO DISTRESS NOTED, LEFT UNDISTURBED AT THIS TIME, FALL PRECAUTIONS IN PLACE
--- NOTE | 2020-06-17 04:30 | NUR ---
PT RESTING WITH EYES CLOSED, RESP QUIET, NO DISTRESS NOTED, LEFT UNDISTURBED AT THIS TIME, FALL PRECAUTIONS IN PLACE
--- NOTE | 2020-06-17 05:15 | NUR ---
PT AUTO BODY CUSTOMIZER LIGHT, PT UP TO BR VIA WC WITH ASSISTANCE, VOIDED BY SELF WITH NO DIFFICULTY, PT BACK TO BED, DENIES NEEDS OR PAIN AT THIS TIME
--- NOTE | 2020-06-17 06:44 | NUR ---
PT AWAKE, OBSTAINED FSBS, ADM 0700 MED PER MD ORDERS, SEE EMAR, PT UP TO BR VIA WC WITH ASSISTANCE, VOIDED WITH NO DIFFICULTY, PT BACK TO BED, DENIES FURTHER NEEDS, FALL PRECAUTIONS IN PLACE
--- NOTE | 2020-06-17 08:00 | NUR ---
SITTING UP IN BED EATING BREAKFAST, DENIES ANY NEEDS AT THIS TIME, C/L AND FLUIDS IN REACH.
[2020-06-17 09:41] VITALS: BP 151/63
--- NOTE | 2020-06-17 12:21 | NUR ---
SITTING UP IN BED EATING LUNCH, DENIES ANY NEEDS AT THIS TIME, C/L AND FLUIDS IN REACH.
--- NOTE | 2020-06-17 16:15 | NUR ---
RESTING IN BED WATCHING TV, DENIES ANY NEEDS AT THIS TIME, C/L AND FLUIDS IN REACH.
[2020-06-17 19:32] VITALS: BP 150/56
--- NOTE | 2020-06-17 19:42 | NUR ---
REPORT RECEIVED AND ROUNDING COMPLETE. PATIENT LAYING IN BED EYES CLOSED, EASILY AROUSED. NO NEEDS VOICED AT THIS TIME. NO DISTRESS NOTED. CALL LIGHT WITHIN REACH AND BED IN LOWEST LOCKED POSITION.
--- NOTE | 2020-06-18 07:49 | NUR ---
SITTING UP IN BED EATING BREAKFAST, DENIES ANY NEEDS AT THIS TIME, C/L AND FLUIDS IN REACH.
[2020-06-18 07:54] VITALS: BP 141/53
[2020-06-18 07:59] LABS: BASOPHILS 0.5 % (0-2); EOSINOPHILS 2.1 % (0-7); HEMATOCRIT 33.5 % (36.0-48.0); HEMOGLOBIN 10.7 g/dL (12-16); IMMATURE GRANULOCYTES 0.2 % (0-5); MCH 23.9 pg (26.0-34.0); MCHC 31.9 g/dL (31.0-37.0); MCV 74.8 fL (80.0-100.0); MEAN PLATELET VOLUME 9.3 fL (7.4-10.4); MONOCYTES 10.5 % (2-11); NEUTROPHILS 75.7 % (40-80); PLATELET COUNT 264 10x3/uL (130-400); RBC 4.48 10x6/uL (4.00-5.40); RDW 18.5 % (11.5-14.5); WBC 8.2 10x3/uL (4.8-10.8)
[2020-06-18 08:13] LABS: ANION GAP 13.7 mmol/L (8-16); CALCIUM 8.2 mg/dL (8.5-10.1); CARBON DIOXIDE 24.7 mmol/L (21.0-32.0); CREATININE - SERUM 0.9 mg/dL (0.6-1.3); POTASSIUM - SERUM 4.4 mmol/L (3.5-5.1)
--- NOTE | 2020-06-18 11:02 | NUR ---
PATIENT ADMITTED TO REHAB FROM ACUTE FLOOR. HER PCP IS DR. MACIAS. DME AT HOME IS A ROLLING WALK[facility]. SHE PLANS ON RETURNING TO HER HOME AT DISCHARGE BUT IF SHE NEEDS FUTHER REHAB SHE WOULD LIKE TO GO TO [facility]. WILL CONTINUE TO FOLLOW WITH PATIENT.
--- NOTE | 2020-06-18 11:59 | NUR ---
RESTING IN BED WATCHING TV, DENIES ANY NEEDS AT THIS TIME, C/L AND FLUIDS IN REACH.
--- NOTE | 2020-06-18 16:00 | NUR ---
RESTING IN BED WITH EYES CLOSED, NO S/S OF DISTRESS NOTED, RESP EVEN AND UNLABORED, C/L AND FLUIDS IN REACH.
[2020-06-18 19:56] VITALS: BP 150/47
--- NOTE | 2020-06-18 19:58 | NUR ---
AWAKE AND ALERT. RESTING IN BED WITH RESPIRAITONS UNLABORED. NO DISTERSS NOTED. CALL LIGHT IN REACH.
--- NOTE | 2020-06-19 02:01 | NUR ---
SLEEPING WITH RESPIRATIONS UNLABORED. NO DISTRESS NOTED.
--- NOTE | 2020-06-19 05:51 | NUR ---
QUIET HOURS. NO ACUTE CHANGES IN CONDITION THIS SHIFT. RESTING IN BED WITH NO DISTRESS NOTED.
[2020-06-19 08:00] VITALS: BP 156/67
--- NOTE | 2020-06-19 10:31 | NUR ---
PT RESTING IN BED WITH EYES OPEN CALL LIGHT IN REACH WILL MONITER
--- NOTE | 2020-06-19 17:00 | NUR ---
PT RESTING IN BED WITH EYES OPEN CALL LIGHT IN REACH WILL MONITER
[2020-06-19 20:00] VITALS: BP 162/74
--- NOTE | 2020-06-20 02:06 | NUR ---
SLEEPING WITH NO DISTRESS NOTED.
--- NOTE | 2020-06-20 05:00 | NUR ---
QUIET HOURS. NO ACUTE CHANGES IN CONDITION THIS SHIFT. RESTING IN BED WITH NO DISTRESS NOTED.
--- NOTE | 2020-06-20 08:00 | NUR ---
PT RESTING IN BED WITH EYES OPEN CALL LIGHT IN REACH WILL MONITER
--- NOTE | 2020-06-20 18:02 | NUR ---
PT RESTING IN BED WITH EYES OPEN CALL LIGHT IN REACH NO PROBLEMS WILL MONITER
[2020-06-20 20:00] VITALS: BP 162/67
--- NOTE | 2020-06-20 20:00 | NUR ---
AWAKE AND ALERT. RESTING IN BED WITH RESPIRATIONS UNLABORED. NO DISTRESS NOTED.
--- NOTE | 2020-06-21 03:22 | NUR ---
ASSISTED TO BATHROOM AND BACK TO BED. NO DISTRESS NOTED.
[2020-06-21 07:08] LABS: BASOPHILS 0.5 % (0-2); EOSINOPHILS 1.8 % (0-7); HEMATOCRIT 36.4 % (36.0-48.0); HEMOGLOBIN 11.3 g/dL (12-16); IMMATURE GRANULOCYTES 0.3 % (0-5); LYMPHOCYTES 13.7 % (15-50); MCH 23.3 pg (26.0-34.0); MCV 75.1 fL (80.0-100.0); MEAN PLATELET VOLUME 9.4 fL (7.4-10.4); MONOCYTES 9.3 % (2-11); NEUTROPHILS 74.4 % (40-80); RBC 4.85 10x6/uL (4.00-5.40); RDW 18.2 % (11.5-14.5); WBC 9.2 10x3/uL (4.8-10.8)
[2020-06-21 07:14] LABS: PLATELET COUNT 328 10x3/uL (130-400)
[2020-06-21 07:23] LABS: ANION GAP 17.4 mmol/L (8-16); CALCIUM 8.6 mg/dL (8.5-10.1); CARBON DIOXIDE 23.4 mmol/L (21.0-32.0); POTASSIUM - SERUM 4.8 mmol/L (3.5-5.1)
--- NOTE | 2020-06-21 08:00 | NUR ---
SITTING UP IN BED EATING BREAKFAST, DENIES ANY NEEDS AT THIS TIME, C/L AND FLUIDS IN REACH.
[2020-06-21 08:37] VITALS: BP 178/69
--- NOTE | 2020-06-21 11:58 | NUR ---
RESTING IN BED WATCHING TV, DENIES ANY NEEDS AT THIS TIME, C/L AND FLUIDS IN REACH.
--- NOTE | 2020-06-21 12:53 | NUR ---
I have reviewed this patient and I concur with the Shift Assessment completed by the Licensed Practical Nurse today this shift.
--- NOTE | 2020-06-21 16:09 | NUR ---
RESTING IN BED WITH EYES CLOSED, RESP EVEN AND UNLABORED, NO S/S OF DISTRESS NOTED, C/L AND FLUIDS IN REACH.
--- NOTE | 2020-06-21 19:00 | NUR ---
RECEIVED PT LYING IN AWAKE. ALERT AND ORIENTED X4. DENIES ANY NEEDS OR PAIN. NO SIGNS OF ACUTE DISTRESS NOTED. SHIFT ASSESSMENT COMPLETE. CALL LIGHT WITHIN REACH. FALL PRECAUTIONS IN PLACE. CPOC
[2020-06-21 20:04] VITALS: BP 127/60
--- NOTE | 2020-06-22 00:16 | NUR ---
ASSISTED PT TO RESTROOM AND BACK TO BED WITH SBA. DENIES ANY OTHER NEEDS. CALL LIGHT WITHIN REACH. FALL PRECAUTIONS IN PLACE. CPOC
--- NOTE | 2020-06-22 02:08 | NUR ---
PT LYING IN BED ON RIGHT SIDE EYES CLOSED RESTING. RR EVEN AND UNLABORED. CALL LIGHT WITHIN REACH. FALL PRECAUTIONS IN PLACE. CPOC
--- NOTE | 2020-06-22 05:23 | NUR ---
PT LYING IN BED EYES CLOSED RESTING. NO ACUTE CHANGES IN CONDITION THIS SHIFT. CALL LIGHT WITHIN REACH. FALL PRECAUTIONS IN PLACE. CPOC
[2020-06-22 08:00] VITALS: BP 118/62
--- NOTE | 2020-06-22 08:06 | NUR ---
SITTING UP IN BED EATING BREAKFAST, DENIES ANY NEEDS AT THIS TIME, C/L AND FLUIDS IN REACH.
--- NOTE | 2020-06-22 12:21 | NUR ---
SITTING UP IN BED EATING LUNCH, DENIES ANY NEEDS AT THIS TIME, C/L AND FLUIDS IN REACH.
--- NOTE | 2020-06-22 12:24 | NUR ---
Nutrition Follow Up: Interview: Met with patient this am. Patient stated her appetite has been good lately. She denied any recent N/V/D/C and denied any new issues chewing/swallowing foods. She stated her last BM was yesterday and of normal consitency. Diet: Diabetic Diet PO Intake: 80% avg for last 9 meals Weight: 132 lbs on 06/12 BM: Stated last BM on 06/21 Sig Meds: Lantus, Humulin, Miralax Sig Labs: No new sig labs RD to continue to follow and monitor patient DHS
--- NOTE | 2020-06-22 14:50 | NUR ---
PATIENT IS CLIENT OF [facility] [facility].
--- NOTE | 2020-06-22 16:00 | NUR ---
RESTING IN BED WATCHING TV, DENIES ANY NEEDS AT THIS TIME, C/L AND FLUIDS IN REACH.
[2020-06-22 19:26] VITALS: BP 129/66
--- NOTE | 2020-06-22 19:56 | NUR ---
PT UP TO TOILET, NO OTHER NEEDS NOTED, RESPIRATIONS EVEN AND UNLABORED, FALL PRECAUTIONS IN PLACE, FLUIDS/CALL LIGHT WITHIN REACH, PT BACK IN BED RESTING COMFORTABLY
[2020-06-23 07:18] LABS: BASOPHILS 0.5 % (0-2); EOSINOPHILS 3.3 % (0-7); HEMATOCRIT 34.6 % (36.0-48.0); HEMOGLOBIN 10.8 g/dL (12-16); IMMATURE GRANULOCYTES 0.4 % (0-5); LYMPHOCYTES 13.7 % (15-50); MCH 23.2 pg (26.0-34.0); MCHC 31.2 g/dL (31.0-37.0); MCV 74.4 fL (80.0-100.0); MEAN PLATELET VOLUME 9.1 fL (7.4-10.4); MONOCYTES 13.7 % (2-11); NEUTROPHILS 68.4 % (40-80); PLATELET COUNT 367 10x3/uL (130-400); RBC 4.65 10x6/uL (4.00-5.40); RDW 18.1 % (11.5-14.5); WBC 7.3 10x3/uL (4.8-10.8)
[2020-06-23 07:45] LABS: ANION GAP 14.6 mmol/L (8-16); CALCIUM 8.3 mg/dL (8.5-10.1); CARBON DIOXIDE 21.8 mmol/L (21.0-32.0); CREATININE - SERUM 1.1 mg/dL (0.6-1.3); POTASSIUM - SERUM 4.4 mmol/L (3.5-5.1)
--- NOTE | 2020-06-23 08:01 | NUR ---
SITTING UP IN BED EATING BREAKFAST, DENIES ANY NEEDS AT THIS TIME, C/L AND FLUIDS IN REACH.
[2020-06-23 08:27] VITALS: BP 127/58
--- NOTE | 2020-06-23 12:00 | NUR ---
SITTING UP IN BED EATING LUNCH, DENIES ANY NEEDS AT THIS TIME, C/L AND FLUIDS IN REACH.
--- NOTE | 2020-06-23 16:03 | NUR ---
RESTING IN BED WATCHING TV, DENIES ANY NEEDS AT THIS TIME, C/L AND FLUIDS IN REACH.
[2020-06-23 19:06] VITALS: BP 123/62
--- NOTE | 2020-06-23 19:29 | NUR ---
IN BED SITTING QUIETLY, NO NEEDS NOTED, RESPIRATIONS EVEN/UNLABORED, FALL PRECAUTIONS IN PLACE, FLUIDS/CALL LIGHT WITHIN REACH
--- NOTE | 2020-06-24 00:15 | NUR ---
PT ASLEEP,AROUSES EASILY TO VOICE, RESPIRATIONS SLOW AND EASY, NO IMMEDIATE NEEDS NOTED, FALL PRECAUTIONS IN PLACE, FLUIDS/CALL LIGHT WITHIN REACH
--- NOTE | 2020-06-24 08:00 | NUR ---
PT RESTING IN BED WITH EYES OPEN CALL LIGHT IN REACH NO PROBLEMS WILL MONITER
[2020-06-24 10:01] VITALS: BP 116/57
[2020-06-24] MEDS ORDERED: NORVASC10 MG PO (11:33)
[2020-06-24] MEDS ORDERED: ASPIRIN81 MG PO (11:33)
[2020-06-24] MEDS ORDERED: ACETAMINOPHEN325 MG PO (11:35)
[2020-06-24] MEDS ORDERED: LISINOPRIL40 MG PO (11:35)
[2020-06-24] MEDS ORDERED: MIRALAX17 GM PO (11:36)
--- NOTE | 2020-06-24 13:10 | NUR ---
PT DISCHARGED TO HOME VIA WHEELCHAIR WITH DISCHARGE SUMMARY AND MEDS REVIEWED WITH PT TOLERATED WELL
--- NOTE | 2020-06-24 14:54 | NUR ---
PATIENT HAS DISCHARGE HOME WITH FAMILY TODAY. [facility] WILL RESUME THERAPY ATHOME. NO NEW DME NEEDED AT THIS TIME. DR. MACIAS 07/06/20 @ 10:30. BENY SINGED, IMM SERVED AND EXPLAINED, ONE GIVEN TO PATIENT AND ONE FILED IN CHART. DISCHARGE INSTRUCTIONS HAVE BEEN FAXED TO PCP, HOME HEALTH AND REVIEWED WITH PATIENT PER PRIMARY NURSE. NO COMPARE DATA REVIEWED PATIENT IS A CLIENT OF [employer] AND WISHES TO REMAIN .
== END 2020-06-24 13:26 | disposition home health service (06) | DRG 92 ==
LOC: D.REHAB 15:44
PROVIDERS: ADMIT Emergency Medicine; ATTEND Emergency Medicine
DX: G95.9 Disease of spinal cord, unspecified (principal); N39.0 Urinary tract infection, site not specified; E87.1 Hypo-osmolality and hyponatremia; R53.1 Weakness; E11.65 Type 2 diabetes mellitus with hyperglycemia; M51.16 Intervertebral disc disorders with radiculopathy, lumbar region; I10 Essential (primary) hypertension; E78.5 Hyperlipidemia, unspecified

== ENCOUNTER 2020-06-27 13:48 | Inpatient (IN) | payer MEDICARE, OTHER ==
[~2020-06-27] VITALS: Ht 160 cm; Wt 59.9 kg
[~2020-06-27 13:48] MED LIST changes: +ACETAMINOPHEN325 MG PO; +ASPIRIN81 MG PO; +HUMULIN R100 UNIT/1 SC; +LISINOPRIL40 MG PO; +MIRALAX17 GM PO; +ULTRAM50 MG PO
[2020-06-27 14:00] VITALS: BP 122/63
--- NOTE | 2020-06-27 14:26 | NUR ---
PT HAD LARGE FORMED STOOL, FOLLOWED BY DIARRHEA
[2020-06-27 14:40] LABS: HEMATOCRIT 38.4 % (36.0-48.0); HEMOGLOBIN 12.2 g/dL (12-16); MCHC 31.8 g/dL (31.0-37.0); MCV 75.4 fL (80.0-100.0); PLATELET COUNT 539 10x3/uL (130-400); RBC 5.09 10x6/uL (4.00-5.40); RDW 18.1 % (11.5-14.5); WBC 23.1 10x3/uL (4.8-10.8)
[2020-06-27 14:51] LABS: CALC OSMOLALITY 275 mosm/kg (275-300); CALCIUM 9.2 mg/dL (8.5-10.1); CARBON DIOXIDE 22.1 mmol/L (21.0-32.0); CHLORIDE - SERUM 99 mmol/L (98-107); CREATININE - SERUM 1.5 mg/dL (0.6-1.3); POTASSIUM - SERUM 4.5 mmol/L (3.5-5.1); SODIUM 133 mmol/L (136-145); UREA NITROGEN 24 mg/dL (7-18); eGFR NON AFRICAN AMERICAN 35 mL/min (90-120)
[2020-06-27 14:54] LABS: GLUCOSE 199 mg/dL (74-106)
[2020-06-27 15:00] VITALS: BP 142/67
[2020-06-27 15:00] LABS: ALBUMIN 2.6 g/dL (3.4-5.0); ALKALINE PHOSPHATASE 206 U/L (30-120); ALT (SGPT) 29 U/L (10-68); AMYLASE - SERUM 212 U/L (25-115); BILIRUBIN - TOTAL 0.69 mg/dL (0.2-1.3); LIPASE 234 U/L (73-393); PROTEIN - SERUM 6.4 g/dL (6.4-8.2)
[2020-06-27 15:03] LABS: TROPONIN-I < 0.017 ng/mL (0.000-0.060)
[2020-06-27 15:23] LABS: LYMPHOCYTES 4 % (15-50); MONOCYTES 5 % (2-11); NEUTROPHILS 89 % (40-80); PLATELET ESTIMATE INCREASED
--- NOTE | 2020-06-27 15:26 | NUR ---
PT HAD SMALL AMOUNT OF LOOSE STOOL IN BRIEF. BRIEF CHANGED PT REPOSITIONED IN BED FOR COMFORT.
[2020-06-27 15:37] LABS: BACTERIA MODERATE /hpf (NEGATIVE); BILIRUBIN NEGATIVE (NEGATIVE); EPITHELIAL CELLS NSEEN /hpf (0-5); KETONE NEGATIVE (NEGATIVE); NITRITE NEGATIVE (NEGATIVE); UROBILINOGEN NORMAL (NORMAL); WHITE CELLS - URINE NSEEN /hpf (NEGATIVE)
[2020-06-27 16:00] VITALS: BP 135/67
[2020-06-27 17:30] VITALS: BP 145/56
--- NOTE | 2020-06-27 18:39 | NUR ---
CALLED REPORT TO KATALINA
[2020-06-28] VITALS (7 sets, daily range): BP systolic 118–147; BP diastolic 57–71; Ht 160 cm; Wt 59.9 kg
[2020-06-28] MEDS ORDERED: LANTUS INS100 UNITS/ SC (05:18)
[2020-06-28 06:45] LABS: BASOPHILS 0.1 % (0-2); EOSINOPHILS 0 % (0-7); HEMATOCRIT 32.8 % (36.0-48.0); HEMOGLOBIN 10.1 g/dL (12-16); IMMATURE GRANULOCYTES 0.3 % (0-5); LYMPHOCYTES 2.4 % (15-50); MCHC 30.8 g/dL (31.0-37.0); MCV 74.5 fL (80.0-100.0); MEAN PLATELET VOLUME 9.1 fL (7.4-10.4); MONOCYTES 5.5 % (2-11); NEUTROPHILS 91.7 % (40-80); PLATELET COUNT 492 10x3/uL (130-400)
[2020-06-28 06:51] LABS: WBC 17.2 10x3/uL (4.8-10.8)
[2020-06-28 06:56] LABS: ANION GAP 15.5 mmol/L (8-16); BILIRUBIN - TOTAL 0.23 mg/dL (0.2-1.3); CALCIUM 7.7 mg/dL (8.5-10.1); CARBON DIOXIDE 18.1 mmol/L (21.0-32.0); CREATININE - SERUM 1.3 mg/dL (0.6-1.3); POTASSIUM - SERUM 4.6 mmol/L (3.5-5.1); PROTEIN - SERUM 5.2 g/dL (6.4-8.2)
[2020-06-28 06:58] LABS: ALBUMIN 1.9 g/dL (3.4-5.0)
--- NOTE | 2020-06-28 10:30 | NUR ---
PATIENT AUTOMATIC LATHE TENDER LIGHT. INCONTINENT EPISODE. PAD CHANGE PER REQUEST, DENIES PAIN OR FURTHER NEEDS. BED LOW POSITION, CALL LIGHT IN REACH, WILL CONTINUE TO MONITOR.
--- NOTE | 2020-06-28 16:17 | MORECARE ---
CASE MANAGEMENT DISCHARGE SUMMARY PATIENT: RODOLFO YEBOAH UNIT: [id number] ADM DATE: 06/27/20 AGE: 80 : 39 SEX: F ROOM/BED: D.[facility] AUTHOR: ELIDA TORIBIO PHYSICIAN: REFERRING PHYSICIAN: RONNIE MACIAS MD DATE OF SERVICE: 06/28/20 Discharge Plan Patient Name: RODOLFO YEBOAH [facility] [facility] 1940 Planned Disposition: Anticipated Discharge Date: Discharge Date: Expected LOS: Initial Reviewer: [id number] Initial Review Date: 06/28/2020 Generated: 06/28/20 5:17 pm Comments DCP- Discharge Planning Updated by [id number]: Patti Bojorquez on 06/28/20 3:[address] Patient Name: RODOLFO YEBOAH Admission Status: ER Accout number: [id number] Admission Date: 06-27-2020 : 1940 Admission Diagnosis: Attending: RONNIE MACIAS Current LOS: 1 Anticipated DC Date: Planned Disposition: Primary Insurance: MEDICARE A & B Discharge Planning Comments: I MET WITH PATIENT'S SON СВЕТЛАНА TODAY. HE STATES HIS MOTHER WILL NEED A SNF WHEN STABLE FOR DISCHARGE. STATES IT IS NOT SAFE FOR HER TO DC TO HOME WHERE SHE IS ALONE. STATES SHE WAS JUST DISCHARGED FROM REHAB ON SUNDAY AND THEN RIGHT BACK TO THE HOSPITAL SUNDAY FOR VOMITING. BENY SIGNED FOR [facility]. I AM FAXING THEM A REFERRAL. CM TO FOLLOW AND ASSIST NEEDED. Oil Well Service Unit Operator: Patti Bojorquez External Providers External Provider: [facility] Next Contact Date: Service Request Date: Service Type: Resolution: Reviewer: Comments: Patient Name: RODOLFO YEBOAH Page [phone] at 1617 All edits/amendments must be made on the electronic document DICTATION DATE: 06/28/20 161 BOARDING SPECIALIST: DAMIÁN 06/28/20 1617 RPT#: [id number] DC DATE: STATUS: ADM IN [facility] [address] [place] [address] END OF REPORT
--- NOTE | 2020-06-28 17:41 | NUR ---
LEFT AC IV CATHETER REMOVED. NEW IV PLACED RIGHT FOREARM.
[2020-06-29] VITALS: BP 148/67
[2020-06-29 04:00] VITALS: BP 154/71
[2020-06-29 11:03] VITALS: BP 134/65
[2020-06-29 15:15] VITALS: BP 131/55
[2020-06-29 20:00] VITALS: BP 129/72
--- NOTE | 2020-06-29 23:00 | NUR ---
REPORT GIVEN BY LARRY FREDERICK.
[2020-06-30] VITALS: BP 125/66
--- NOTE | 2020-06-30 00:30 | NUR ---
PT IS RESTING QUIETLY IN BED. SHE DOES NOT C/O OF ANY ABD PAIN AT THIS TIME. SHE IS A DIABETIC AND ON A DIABETIC DIET. SHE IS A/A/O. SHE HAS AN IV IN THE RIGHT FOREARM RUNNING NS AT 125ML/HR. IT IS REPORTED THAT SHE HAS SOME STM LOSS. I HAVE NOT SEEN THIS PRESENTLY. SHE USES A BEDPAN TO VOID. SKIN IS WARM AND DRY. SHE LOOKS PALE. SHE UNDERSTANDS TO PUT THE CALL LIGHT ON WHEN SHE NEEDS ANYTHING AND HER CALL LIGHT IS CLOSE AT HAND.
[2020-06-30 04:00] VITALS: BP 127/63
--- NOTE | 2020-06-30 04:19 | NUR ---
PT IS RESTING QUIETLY.
--- NOTE | 2020-06-30 06:52 | NUR ---
PT HAS HAD AT LEAST TWO BM'S TONIGHT. DID NOT NEED ANY INSULIN THIS MORNING
[2020-06-30 07:41] LABS: BASOPHILS 0 % (0-2); EOSINOPHILS 0.1 % (0-7); HEMATOCRIT 25.7 % (36.0-48.0); HEMOGLOBIN 8.1 g/dL (12-16); IMMATURE GRANULOCYTES 0.4 % (0-5); LYMPHOCYTES 5.5 % (15-50); MCH 23.3 pg (26.0-34.0); MCHC 31.5 g/dL (31.0-37.0); MCV 73.9 fL (80.0-100.0); MEAN PLATELET VOLUME 9.1 fL (7.4-10.4); MONOCYTES 6.3 % (2-11); NEUTROPHILS 87.7 % (40-80); PLATELET COUNT 452 10x3/uL (130-400); RBC 3.48 10x6/uL (4.00-5.40); RDW 18.8 % (11.5-14.5); WBC 16.8 10x3/uL (4.8-10.8)
[2020-06-30 08:46] LABS: ALBUMIN 1.4 g/dL (3.4-5.0); ANION GAP 13.6 mmol/L (8-16); BILIRUBIN - TOTAL 0.19 mg/dL (0.2-1.3); CALCIUM 7.3 mg/dL (8.5-10.1); CARBON DIOXIDE 17.7 mmol/L (21.0-32.0); CREATININE - SERUM 0.9 mg/dL (0.6-1.3); POTASSIUM - SERUM 3.3 mmol/L (3.5-5.1); PROTEIN - SERUM 4.5 g/dL (6.4-8.2)
--- NOTE | 2020-06-30 09:29 | NUR ---
ALERT AND ORIENTED. LUNGS CLEAR BILATERALLY. HEART SOUND S1 AND S2 HEARD IN ALL S[place]. BOWEL SOUNDS ACTIVE X 4. IV TO RFA PATENT WITHOUT REDNESS. VOIDED IN BED D/T "COULDN'T FIND CALL LIGHT". BEDDING CHANGED. SOCKS PLACED ON PATIENT PER REQUEST. DENIES FURTHER NEEDS. BED LOW. CALL NOVOA AND PERSONAL ITEMS IN REACH. WILL CONTINUE TO MONITOR.
[2020-06-30 09:58] VITALS: BP 138/66
[2020-06-30 13:33] VITALS: BP 146/58
[2020-06-30 18:25] VITALS: BP 155/74
[2020-06-30 20:00] VITALS: BP 133/57
[2020-07-01 04:00] VITALS: BP 145/66
[2020-07-01 08:10] LABS: BASOPHILS 0.1 % (0-2); EOSINOPHILS 0.6 % (0-7); HEMATOCRIT 28.6 % (36.0-48.0); HEMOGLOBIN 8.9 g/dL (12-16); IMMATURE GRANULOCYTES 0.5 % (0-5); LYMPHOCYTES 6.8 % (15-50); MCH 22.9 pg (26.0-34.0); MCHC 31.1 g/dL (31.0-37.0); MCV 73.7 fL (80.0-100.0); MEAN PLATELET VOLUME 8.8 fL (7.4-10.4); MONOCYTES 7.9 % (2-11); NEUTROPHILS 84.1 % (40-80); PLATELET COUNT 482 10x3/uL (130-400); RBC 3.88 10x6/uL (4.00-5.40); RDW 18.9 % (11.5-14.5); WBC 16.8 10x3/uL (4.8-10.8)
[2020-07-01 08:33] LABS: ALBUMIN 1.5 g/dL (3.4-5.0); ANION GAP 14.3 mmol/L (8-16); BILIRUBIN - TOTAL 0.23 mg/dL (0.2-1.3); CALCIUM 7.3 mg/dL (8.5-10.1); CREATININE - SERUM 0.8 mg/dL (0.6-1.3); POTASSIUM - SERUM 3.3 mmol/L (3.5-5.1)
[2020-07-01 08:40] VITALS: BP 150/70
--- NOTE | 2020-07-01 11:50 | NUR ---
OT NOTE: PT PERFORMED WELL TODAY. BED MOB WITH MIN ASSIST. STATIC SITTING BALANCE ON EOB IS GOOD; DYNAMIC IS FAIR.. PT UNABLE TO BEND FORWARD TO LEDY PULL UPS..REQUIRES MOD ASSIST WITH THIS. PT CONTINUALLY INCONT OF BOWEL WITHOUT REALIZING IT.. REUQIRES EXT ASSIST WITH TOILET HYGIENE. MOD ASSIST WITH CLOTHING MGMT; SET UP FOR GROOMING TASKS FROM SEATED POSITION. ABLE TO AMB IN ROOM WITH MIN ASSIST, GAIT BELT, AND WALKER.. NAVJOT CALLAHAN, OTR/L [phone]
[2020-07-01 12:25] VITALS: BP 140/73
--- NOTE | 2020-07-01 12:54 | NUR ---
Nutrition follow-up: Diet advanced to consistent CHO PO intake ~50% of meals Labs: glucose under better control Wt: 131# Will continue to provide food choices and honor food preferences. RDN following.
[2020-07-01 16:38] VITALS: BP 144/63
[2020-07-01 20:00] VITALS: BP 148/18
--- NOTE | 2020-07-01 20:00 | NUR ---
PATIENT RESTING IN BED. NO S/S OF ACUTE DISTRESS. PATIENT C/O BEING WET AND THAT SHE WANTED HER PAIN MEDICINE. PATIENT HAS A RIGHT FOREARM, NORMAL SALINE @ 125 ML/HR. IV IS PATENT WITHOUT REDNESS, SWELLING, OR TENDERNESS. PATIENT HAS BEEN CHANGED AND GIVEN PAIN MEDICINE. CALL LIGHT WITHIN REACH. BED ALARM ON. WILL CONTINUE TO MONITOR.
[2020-07-02] VITALS: BP 153/68
--- NOTE | 2020-07-02 03:29 | NUR ---
I have reviewed this patient and I concur with the Shift Assessment completed by the Licensed Practical Nurse today this shift.
[2020-07-02 04:00] VITALS: BP 156/78
[2020-07-02 06:39] LABS: BASOPHILS 0.1 % (0-2); HEMOGLOBIN 8.6 g/dL (12-16); IMMATURE GRANULOCYTES 1.8 % (0-5); LYMPHOCYTES 10.3 % (15-50); MCH 22.6 pg (26.0-34.0); MCHC 30.7 g/dL (31.0-37.0); MCV 73.7 fL (80.0-100.0); MEAN PLATELET VOLUME 8.7 fL (7.4-10.4); MONOCYTES 11.2 % (2-11); NEUTROPHILS 75.6 % (40-80); PLATELET COUNT 510 10x3/uL (130-400); RDW 18.7 % (11.5-14.5); WBC 15.9 10x3/uL (4.8-10.8)
[2020-07-02 06:57] LABS: ALBUMIN 1.5 g/dL (3.4-5.0); ALKALINE PHOSPHATASE 84 U/L (30-120); BILIRUBIN - TOTAL 0.18 mg/dL (0.2-1.3); CALC OSMOLALITY 279 mosm/kg (275-300); CALCIUM 7.3 mg/dL (8.5-10.1); CARBON DIOXIDE 23.3 mmol/L (21.0-32.0); CHLORIDE - SERUM 109 mmol/L (98-107); CREATININE - SERUM 0.7 mg/dL (0.6-1.3); GLUCOSE 79 mg/dL (74-106); PROTEIN - SERUM 4.4 g/dL (6.4-8.2); SODIUM 142 mmol/L (136-145); UREA NITROGEN 7 mg/dL (7-18); eGFR NON AFRICAN AMERICAN 85 mL/min (90-120)
[2020-07-02 07:29] LABS: ALT (SGPT) 10 U/L (10-68)
[2020-07-02 07:31] LABS: POTASSIUM - SERUM 2.8 mmol/L (3.5-5.1)
[2020-07-02 09:16] VITALS: BP 142/86
--- NOTE | 2020-07-02 09:20 | MORECARE ---
CASE MANAGEMENT DISCHARGE SUMMARY PATIENT: RODOLFO YEBOAH UNIT: [id number] ADM DATE: 06/27/20 AGE: 80 : 39 SEX: F ROOM/BED: D.2236 AUTHOR: ELIDA TORIBIO PHYSICIAN: REFERRING PHYSICIAN: RONNIE MACIAS MD DATE OF SERVICE: 07/02/20 Discharge Plan Patient Name: RODOLFO YEBOAH Facility: [facility]:[place] : 1940 Planned Disposition: Anticipated Discharge Date: Discharge Date: Expected LOS: Initial Reviewer: [id number] Initial Review Date: 06/28/2020 Generated: 07/02/20 10:19 am DCP- Discharge Planning Updated by [id number]: Patti Bojorquez on 06/28/20 3:[address] Patient Name: RODOLFO YEBOAH Admission Status: ER Accout number: [id number] Admission Date: 06-27-2020 : 1940 Admission Diagnosis: Attending: RONNIE MACIAS Current LOS: 1 Anticipated DC Date: Planned Disposition: Primary Insurance: MEDICARE A & B Discharge Planning Comments: I MET WITH PATIENT'S SON СВЕТЛАНА TODAY. HE STATES HIS MOTHER WILL NEED A SNF WHEN STABLE FOR DISCHARGE. STATES IT IS NOT SAFE FOR HER TO DC TO HOME WHERE SHE IS ALONE. STATES SHE WAS JUST DISCHARGED FROM REHAB ON SUNDAY AND THEN RIGHT BACK TO THE HOSPITAL SUNDAY FOR VOMITING. BENY SIGNED FOR [facility]. I AM FAXING THEM A REFERRAL. CM TO FOLLOW AND ASSIST NEEDED. Cigar Maker: Patti Bojorquez External Providers External Provider: [facility] Next Contact Date: Service Request Date: Service Type: Resolution: Reviewer: Comments: Coverage Notice Reviewer: [id number] - Patti Bojorquez Notice Issued Date-Time: 06/28/2020 16:17 Notice Type: Patient Choice Letter Notice Delivered To: Family Member Relationship to Patient: Son Cloth Calender Name: СВЕТЛАНА Delivery Method: HAND - Hand Delivered Aziza Days: Prior Verbal Notification: Recipient Understood Notice: Yes Recipient Signature: Yes Med Rec Note Co-signed by Attending: Coverage Notice Comment: [facility] Last DP export: 06/28/20 3:17 p Patient Name: RODOLFO YEBOAH Page 28751 at 0920 All edits/amendments must be made on the electronic document DICTATION DATE: 07/02/20918 MATHEMATICS ACADEMIC CHAIR: DAMIÁN 07/02/20918 RPT#: [id number] DC DATE: STATUS: ADM IN [facility] [address] [place] [address] END OF REPORT
--- NOTE | 2020-07-02 10:16 | NUR ---
SHE IS VERY WEAK, SHE DOES NOT WANT TO GET UP TO USE THE BATHROOM. SHE WANTS TO USE THE BEDPAN. SHE WILL TELL YOU AFTER SHE HAS USED THE BATHROOM. THE CALL LIGHT IS WITHIN REACH.
[2020-07-02 12:57] VITALS: BP 156/73
--- NOTE | 2020-07-02 14:07 | MORECARE ---
CASE MANAGEMENT DISCHARGE SUMMARY PATIENT: RODOLFO YEBOAH UNIT: [id number] ADM DATE: 06/27/20 AGE: 80 : 39 SEX: F ROOM/BED: D.2236 AUTHOR: ELIDA TORIBIO PHYSICIAN: REFERRING PHYSICIAN: RONNIE MACIAS MD DATE OF SERVICE: 07/02/20 Discharge Plan Patient Name: RODOLFO YEBOAH Facility: [facility]:[place] : 1940 Planned Disposition: Anticipated Discharge Date: Discharge Date: Expected LOS: Initial Reviewer: [email or web address] Initial Review Date: 06/28/2020 Generated: 07/02/20 3:06 pm Comments DCP- Discharge Planning Updated by [email or web address]: Patti Bojorquez on 07/02/20 1:[address] Patient Name: RODOLFO YEBOAH Admission Status: ER Accout number: [id number] Admission Date: 06-27-2020 : 1940 Admission Diagnosis:UNSPECIFIED ABDOMINAL PAIN Attending: RONNIE MACIAS Current LOS: 5 Anticipated DC Date: Planned Disposition: Primary Insurance: MEDICARE A & B Discharge Planning Comments: [facility]. SHE STATES IF PATIENT IS MEDICALLY STABLE SUNDAY THEY SHOULD BE ABLE TO TAKE HER. CM TO FOLLOW AND ASSIST NEEDED. Policy Specialist: Patti Bojorquez DCP- Discharge Planning Updated by [id number]: Patti Bojorquez on 06/28/20 3:[address] Patient Name: RODOLFO YEBOAH Admission Status: ER Accout number: [id number] Admission Date: 06-27-2020 : 1940 Admission Diagnosis: Attending: RONNIE MACIAS Current LOS: 1 Anticipated DC Date: Planned Disposition: Primary Insurance: MEDICARE A & B Discharge Planning Comments: I MET WITH PATIENT'S SON СВЕТЛАНА TODAY. HE STATES HIS MOTHER WILL NEED A SNF WHEN STABLE FOR DISCHARGE. STATES IT IS NOT SAFE FOR HER TO DC TO HOME WHERE SHE IS ALONE. STATES SHE WAS JUST DISCHARGED FROM REHAB ON SUNDAY AND THEN RIGHT BACK TO THE HOSPITAL SUNDAY FOR VOMITING. BENY SIGNED FOR [facility]. I AM FAXING THEM A REFERRAL. CM TO FOLLOW AND ASSIST NEEDED. Policy Specialist: Patti Bojorquez Coverage Notice Reviewer: [id number] Traci Bojorquez Notice Issued Date-Time: 06/28/2020 16:17 Notice Type: Patient Choice Letter Notice Delivered To: Family Member Relationship to Patient: Son Bleacher [employer] Name: СВЕТЛАНА Delivery Method: HAND - Hand Delivered Aziza Days: Prior Verbal Notification: Recipient Understood Notice: Yes Recipient Signature: Yes Med Rec Note Co-signed by Attending: Coverage Notice Comment: [facility] Last DP export: 07/02/20 8:20 a Patient Name: RODOLFO YEBOAH Page [phone] at 1407 All edits/amendments must be made on the electronic document DICTATION DATE: 07/02/20 1406 SPECIAL EDUCATION PARAEDUCATOR: DAMIÁN 07/02/20 1406 RPT#: [id number] DC DATE: STATUS: ADM IN [facility] [address] [place] [address] END OF REPORT
--- NOTE | 2020-07-02 16:01 | NUR ---
OT NOTE: PT REQUIRED THERAPEUTIC USE OF SELF FOR INCREASED PARTICIPATION. PT STATED SHE WANTED TO USE BEDPAN. NURSING STATED PT NEEDED TO BE UP GOING TO TOILET. FOR INCREASED SAFETY, OT/PT WORKED TOGETHER FOR MAXIMAL THERAPEUTIC BENEFIT FOR PATIENT. PT STOOD WITH PATIENT OT COMPLETED LB HYGIENE TASKS WITH TOTAL A. PT THEN STATED SHE COULD NOT STAND AND SAT DOWN AT EOB. PT WAS SBA FOR SAFETY , HOWEVER, PT WAS SITTING UPRIGHT W/O NO DISTRESS. PT SUDDENLY WENT SUPINE IN BED AND BUMPED HEAD ON SIDERAIL. NURSING NOTIFIED IMMEDIATELY. NURSING EVALUATED PT AND STATED NO FUTHER ASSESSEMENT NEEDED. PT EXHIBITED SELF LIMINTING BEHAVIOR. THANK YOU, BRIELLE KEMP
[2020-07-02 17:06] VITALS: BP 153/76
[2020-07-02 20:00] VITALS: BP 162/78
--- NOTE | 2020-07-02 20:00 | NUR ---
PATIENT RESTING IN BED. NO S/S OF ACUTE DISTRESS. PATIENT C/O WANTING TO TAKE HER MEDS SO THAT SHE COULD GO TO BED. PATIENT HAS IV IN RIGHT FOREARM, NORMAL SALINE @ 125 ML/HR. IV IS PATENT WITHOUT REDNESS, SWELLING, OR TENDERNESS. PATIENT HAS BEEN HAVING DIARRHEA AND IS INCONTINENT OF BOWEL AND BLADDER. CALL LIGHT WITHIN REACH. WILL CONTINUE TO MONITOR.
--- NOTE | 2020-07-03 02:54 | NUR ---
I have reviewed this patient and I concur with the Shift Assessment completed by the Licensed Practical Nurse today this shift.
[2020-07-03 04:00] VITALS: BP 153/64
[2020-07-03 06:35] LABS: BASOPHILS 0.2 % (0-2); EOSINOPHILS 0.6 % (0-7); HEMATOCRIT 28.1 % (36.0-48.0); HEMOGLOBIN 8.7 g/dL (12-16); IMMATURE GRANULOCYTES 3.4 % (0-5); LYMPHOCYTES 11.4 % (15-50); MCH 22.9 pg (26.0-34.0); MCV 73.9 fL (80.0-100.0); MEAN PLATELET VOLUME 8.7 fL (7.4-10.4); MONOCYTES 14.3 % (2-11); NEUTROPHILS 70.1 % (40-80); PLATELET COUNT 557 10x3/uL (130-400); WBC 15.6 10x3/uL (4.8-10.8)
[2020-07-03 06:49] LABS: CALC OSMOLALITY 276 mosm/kg (275-300); CALCIUM 7.3 mg/dL (8.5-10.1); CARBON DIOXIDE 20.1 mmol/L (21.0-32.0); CHLORIDE - SERUM 109 mmol/L (98-107); CREATININE - SERUM 0.6 mg/dL (0.6-1.3); GLUCOSE 108 mg/dL (74-106); POTASSIUM - SERUM 3.6 mmol/L (3.5-5.1); SODIUM 140 mmol/L (136-145); eGFR NON AFRICAN AMERICAN > 90 mL/min (90-120)
[2020-07-03 06:51] LABS: UREA NITROGEN 5 mg/dL (7-18)
[2020-07-03 09:34] VITALS: BP 152/76
[2020-07-03 13:32] VITALS: BP 154/63
[2020-07-03 17:45] VITALS: BP 147/66
[2020-07-03 20:00] VITALS: BP 141/72
--- NOTE | 2020-07-04 02:42 | NUR ---
RESTING IN BED WITH NO NEEDS AT THIS TIME. IV TO RIGHT FOREARM INTACT WITH NS PER ORDERS. CALL LIGHT AND WATER IN REACH.
[2020-07-04 07:06] LABS: BASOPHILS 0.2 % (0-2); HEMOGLOBIN 8.8 g/dL (12-16); LYMPHOCYTES 11.8 % (15-50); MCH 22.9 pg (26.0-34.0); MCHC 31.4 g/dL (31.0-37.0); MCV 72.9 fL (80.0-100.0); MEAN PLATELET VOLUME 8.8 fL (7.4-10.4); MONOCYTES 18.7 % (2-11); NEUTROPHILS 63.3 % (40-80); PLATELET COUNT 537 10x3/uL (130-400); RBC 3.84 10x6/uL (4.00-5.40); RDW 18.7 % (11.5-14.5); WBC 12.4 10x3/uL (4.8-10.8)
[2020-07-04 07:15] LABS: ANION GAP 11.8 mmol/L (8-16); CALCIUM 7.1 mg/dL (8.5-10.1); CARBON DIOXIDE 21.4 mmol/L (21.0-32.0); POTASSIUM - SERUM 3.2 mmol/L (3.5-5.1)
[2020-07-04 07:19] LABS: CREATININE - SERUM 0.8 mg/dL (0.6-1.3)
[2020-07-04 13:30] VITALS: BP 162/78
--- NOTE | 2020-07-04 19:00 | NUR ---
ASSUMED CARE OF PATIENT, PATIENT RESTING QUIETLY WATCHING TV, NO DISTRESS NOTED, DENIES NEEDS AT THIS TIME, WILL CONTINUE TO MONITOR PATIENT, CALL LIGHT WITHIN REACH
[2020-07-04 19:09] VITALS: BP 171/80
[2020-07-04 20:00] VITALS: BP 152/79
[2020-07-05] VITALS: BP 167/78
[2020-07-05 04:00] VITALS: BP 120/72
[2020-07-05 05:52] LABS: BASOPHILS 0.1 % (0-2); EOSINOPHILS 0.2 % (0-7); HEMATOCRIT 29.6 % (36.0-48.0); HEMOGLOBIN 9.2 g/dL (12-16); IMMATURE GRANULOCYTES 1.5 % (0-5); LYMPHOCYTES 8.5 % (15-50); MCH 22.9 pg (26.0-34.0); MCHC 31.1 g/dL (31.0-37.0); MCV 73.6 fL (80.0-100.0); MEAN PLATELET VOLUME 8.7 fL (7.4-10.4); MONOCYTES 14.4 % (2-11); NEUTROPHILS 75.3 % (40-80); PLATELET COUNT 630 10x3/uL (130-400); RBC 4.02 10x6/uL (4.00-5.40); RDW 19.2 % (11.5-14.5)
[2020-07-05 05:59] LABS: WBC 17.6 10x3/uL (4.8-10.8)
[2020-07-05 06:21] LABS: ANION GAP 12.9 mmol/L (8-16); CALCIUM 7.1 mg/dL (8.5-10.1); CARBON DIOXIDE 21.8 mmol/L (21.0-32.0); CREATININE - SERUM 0.8 mg/dL (0.6-1.3)
[2020-07-05 06:41] LABS: POTASSIUM - SERUM 3.7 mmol/L (3.5-5.1)
--- NOTE | 2020-07-05 07:24 | NUR ---
PT HAS JUST BEEN CLEANED DUE TO INCONT. RECEIVED IN REPORT THAT BS HAS BEEN LOW THIS MORING. RETOOK BS AND IT IS NOW 127
[2020-07-05 08:56] VITALS: BP 168/80
--- NOTE | 2020-07-05 12:30 | NUR ---
OT NOTE: PT APPEARS MORE WEAK TODAY. BED MOB INCLUDING ROLLING FROM SIDE TO SIDE WITH MIN ASSIST; MOD ASSIST FOR SUPINE TO SIT; MOD ASSIST TO MAINTAIN STATIC SITTING BALANCE ON EOB (TRUNK STRENGTH WORSE THAN LAST WEEK)..MOD ASSIST TO LEDY GOWN; MAX ASSIST TO LEDY BRIEF AND MOD ASSIST FOR SLIPPERS. ATTEMPTED AMBULATION WITH PHYS THERAPY INTO HALLWAY, BUT PT DID NOT DO WELL. REQUIRED MAX ASSIST X 2 WITH CONSTANT VERBAL CUES TO STRAIGHTEN KNEES AND CONSTANT ASSIST WITH WALKER MGMT.. ONLY TOLERATED APPROX 12-15 FT.. PT REPORTED INCREASED PAIN AND WEAKNESS TO R HIP.. TRANSFERRED TO CHAIR WITH MAX ASSIST. PT VERY FATIGUED UPON RETURN TO ROOM. ENCOURAGED PT TO SIT UP IN CHAIR AT LEAST 1.5 HRS, SHE IS BECOMING PROGRESSIVELY MORE WEAK. NAVJOT CALLAHAN, OTR/L [phone]
[2020-07-05 12:39] VITALS: BP 149/81
--- NOTE | 2020-07-05 14:19 | NUR ---
OT NOTE: ASSISTED PT BACK TO BED WTIH ASSIST X 2.. PT SLIGHTLY BETTER THAN THIS AM.. PT WAS ABLE TO BRING HER SHOULDERS FORWARD FROM CHAIR WITHOUT ASSIST; SIT TO STAND WITH MOD ASSIST; ABLE TO TAKE A FEW STEPS FROM CHAIR TO BED.. PT VERY FATIGUED BUT DID TOLERATE SITTING UP APPROX 2 HRS TODAY. SIT TO SUPINE WITH MIN/MOD ASSIST. RE POSITIONED IN BED WITH MOD ASSIST. CALL LIGHT NEXT TO PT. NAVJOT CALLAHAN, OTR/L [phone]
[2020-07-05 18:45] VITALS: BP 146/89
--- NOTE | 2020-07-05 19:45 | NUR ---
ASSUMED CARE OF PATIENT AT 1900, PATIENT RESTING QUIETLY WATCHING TV, NO DISTRESS NOTED, DENIES NEEDS AT THIS TIME, PLACED PURWICK BY JACQUELYN RUBIO, IV INFUSING WITHOUT COMPLICATIONS, WILL CONTINUE TO MONITOR PATIENT, CALL LIGHT WITHIN REACH
[2020-07-05 20:00] VITALS: BP 155/79
[2020-07-06 00:42] VITALS: BP 148/79
[2020-07-06 04:00] VITALS: BP 150/71
[2020-07-06 05:18] LABS: BASOPHILS 0.1 % (0-2); EOSINOPHILS 0.4 % (0-7); HEMATOCRIT 28.8 % (36.0-48.0); IMMATURE GRANULOCYTES 1.3 % (0-5); LYMPHOCYTES 8.8 % (15-50); MCHC 31.3 g/dL (31.0-37.0); MCV 73.7 fL (80.0-100.0); MEAN PLATELET VOLUME 8.6 fL (7.4-10.4); MONOCYTES 11.4 % (2-11); PLATELET COUNT 615 10x3/uL (130-400); RBC 3.91 10x6/uL (4.00-5.40); RDW 19.5 % (11.5-14.5); WBC 14.7 10x3/uL (4.8-10.8)
[2020-07-06 06:02] LABS: CALCIUM 7.4 mg/dL (8.5-10.1); CHLORIDE - SERUM 106 mmol/L (98-107); CREATININE - SERUM 0.6 mg/dL (0.6-1.3); SODIUM 138 mmol/L (136-145); UREA NITROGEN 3 mg/dL (7-18); eGFR NON AFRICAN AMERICAN > 90 mL/min (90-120)
[2020-07-06 06:10] LABS: CALC OSMOLALITY 269 mosm/kg (275-300); GLUCOSE 52 mg/dL (74-106)
--- NOTE | 2020-07-06 06:50 | NUR ---
A&O RESTING IN BED WITH EYES OPEN. NO C/O PAIN. NO S/S OF ACUTE DISTRESS NOTED. UP WITH PHYSICAL THERAPY. INCONTINENT OF B&B. AWAITING PLACEMENT AT [facility], GERHARD SCREEN DONE ALREADY AWAITING RESULTS. IV TO RIGHT FOREARM, NS INFUSING @ 75ML/HR. SITE PATENT WITHOUT REDNESS OR SWELLING. DENIES ANY NEEDS AT THIS TIME. CALL LIGHT IN REACH. WILL CONTINUE TO MONITOR.
[2020-07-06 09:13] VITALS: BP 152/68
--- NOTE | 2020-07-06 10:36 | NUR ---
I have reviewed this patient and I concur with the Shift Assessment completed by the Licensed Practical Nurse today this shift.
[2020-07-06 12:56] VITALS: BP 153/75
--- NOTE | 2020-07-06 14:48 | NUR ---
Nutrition follow-up: Pt reports not liking full liquid diet; doctor advanced diet to constent CHO after RDN visit. RDN ordered Glucerna shake with meals per pt request Labs reviewed No new wt to assess pt continues with diarrhea; however, getting less Will continue to provide food choices and honor food preferences within diet restrictions. Please weigh pt RDN following.
--- NOTE | 2020-07-06 17:21 | NUR ---
OT NOTE: (AM) PT REQUIRED MOD A FOR SUPINE TO SIT . PT REQUIRED CGA FOR SITTING AT EOB. PT COMPLETED HAND HYGIENE WITH SETUP. (PM) PT COMPLETED UE AROM TOLERATED. PT COMPLETED UB HYGIENE TASKS WITH MIN A. [phone] THANK YOU,BRIELLE KEMP
[2020-07-06 17:51] VITALS: BP 162/73
--- NOTE | 2020-07-06 18:16 | NUR ---
A&O RESTING IN BED WITH EYES OPEN. NO C/O PAIN. NO S/S OF ACUTE DISTRESS NOTED. DENIES ANY NEEDS AT THIS TIME. CALL LIGHT IN REACH. WILL CONTINUE TO MONITOR.
[2020-07-06 20:00] VITALS: BP 133/76; BP 141/68
[2020-07-07] VITALS: BP 150/69
[2020-07-07 04:00] VITALS: BP 142/76
[2020-07-07 06:55] LABS: BASOPHILS 0.1 % (0-2); EOSINOPHILS 0.3 % (0-7); HEMATOCRIT 28.2 % (36.0-48.0); HEMOGLOBIN 8.7 g/dL (12-16); IMMATURE GRANULOCYTES 0.6 % (0-5); LYMPHOCYTES 8.6 % (15-50); MCH 22.9 pg (26.0-34.0); MCHC 30.9 g/dL (31.0-37.0); MCV 74.2 fL (80.0-100.0); MEAN PLATELET VOLUME 8.9 fL (7.4-10.4); NEUTROPHILS 79.4 % (40-80); PLATELET COUNT 634 10x3/uL (130-400); RDW 19.6 % (11.5-14.5); WBC 16.2 10x3/uL (4.8-10.8)
[2020-07-07 07:32] LABS: CALC OSMOLALITY 269 mosm/kg (275-300); CALCIUM 7.3 mg/dL (8.5-10.1); CARBON DIOXIDE 23.8 mmol/L (21.0-32.0); CHLORIDE - SERUM 104 mmol/L (98-107); CREATININE - SERUM 0.7 mg/dL (0.6-1.3); GLUCOSE 72 mg/dL (74-106); POTASSIUM - SERUM 3.4 mmol/L (3.5-5.1); SODIUM 137 mmol/L (136-145); UREA NITROGEN 3 mg/dL (7-18); eGFR NON AFRICAN AMERICAN 85 mL/min (90-120)
[2020-07-07 09:35] VITALS: BP 154/83
[2020-07-07 13:25] VITALS: BP 141/65
--- NOTE | 2020-07-07 13:38 | NUR ---
OT NOTE: PT COMPLETED SUPINE TO SIT WITH MAX A. PT COMPLETED SIT TO STAND WITH MOD A. PT COMPLETED TSF WITH MOD A. PT COMPLETED UE AROM TOLERATED. [phone] THANK YOU,BRIELLE KEMP
--- NOTE | 2020-07-07 16:09 | NUR ---
I have reviewed this patient and I concur with the Shift Assessment completed by the Licensed Practical Nurse today this shift.
[2020-07-07 17:36] VITALS: BP 157/78
--- NOTE | 2020-07-07 18:37 | NUR ---
RESTING IN BED WITH EYES OPEN. NO C/O PAIN. NO S/S OF ACUTE DISTRESS NOTED. CALL LIGHT IN REACH. WILL CONTINUE TO MONITOR.
[2020-07-07 20:00] VITALS: BP 144/70
--- NOTE | 2020-07-08 02:50 | NUR ---
ALERT AND ORENTED ABLE TO VOICE NEEDS AND WANTSTO STAFF. INCONTINENT OF BOWEL AND BLADER. WUTH CARTE NEEDED. IV TO RIGHT FOREARM WIT NS WITH 20 OF K PER ORDERS. WATTING ON PLACEMENT FOR REHAB. RESTING IN BED WITH NO S/S OF DISTRESS. CALL LIGHT AND WATER IN REACH. CHECKED OFTEN FOR NEEDS AND SAFETY.
[2020-07-08 04:00] VITALS: BP 152/70
[2020-07-08 05:32] LABS: BASOPHILS 0.1 % (0-2); EOSINOPHILS 0.6 % (0-7); HEMATOCRIT 28.2 % (36.0-48.0); HEMOGLOBIN 8.9 g/dL (12-16); IMMATURE GRANULOCYTES 0.8 % (0-5); LYMPHOCYTES 10.9 % (15-50); MCH 23.3 pg (26.0-34.0); MCHC 31.6 g/dL (31.0-37.0); MCV 73.8 fL (80.0-100.0); MEAN PLATELET VOLUME 8.4 fL (7.4-10.4); MONOCYTES 11.9 % (2-11); NEUTROPHILS 75.7 % (40-80); PLATELET COUNT 606 10x3/uL (130-400); RBC 3.82 10x6/uL (4.00-5.40); RDW 19.6 % (11.5-14.5); WBC 14.1 10x3/uL (4.8-10.8)
[2020-07-08 05:35] LABS: CALC OSMOLALITY 268 mosm/kg (275-300); CALCIUM 7.6 mg/dL (8.5-10.1); CARBON DIOXIDE 25.7 mmol/L (21.0-32.0); CHLORIDE - SERUM 103 mmol/L (98-107); CREATININE - SERUM 0.7 mg/dL (0.6-1.3); GLUCOSE 98 mg/dL (74-106); POTASSIUM - SERUM 3.8 mmol/L (3.5-5.1); SODIUM 136 mmol/L (136-145); eGFR NON AFRICAN AMERICAN 85 mL/min (90-120)
[2020-07-08 05:42] LABS: UREA NITROGEN 4 mg/dL (7-18)
--- NOTE | 2020-07-08 07:10 | NUR ---
PT IS RESTING IN BED WITH EYES OPEN. RESPIRATIONS ARE EVEN AND UNLABORED. PT IS AAO X 4. PT WITH INCONTINENT EPISODE OF BOWEL AND BLADDER. BED BATH GIVEN WITH COMPLETE LINEN CHANGED. PT TOLERATES WELL. PT DENIES PRESENCE OF ABD PAIN. PT DENIES PRESENCE OF N/V AT THIS TIME. BED IS IN THE LOWEST POSITION. CALL LIGHT AND BEDSIDE TABLE ARE WITHIN REACH. SIDE RAILS X 2. PT DENIES FURTHER NEEDS WILL CONT TO MONITOR.
[2020-07-08 10:22] VITALS: BP 150/76
[2020-07-08 13:46] VITALS: BP 135/70
[2020-07-08 18:07] VITALS: BP 149/65
[2020-07-08 20:00] VITALS: BP 152/73
[2020-07-09 04:00] VITALS: BP 168/75
[2020-07-09 06:59] LABS: HEMATOCRIT 27.3 % (36.0-48.0); HEMOGLOBIN 8.5 g/dL (12-16); LYMPHOCYTES 7.5 % (15-50); MCH 23.7 pg (26.0-34.0); MCHC 31.1 g/dL (31.0-37.0); MEAN PLATELET VOLUME 8.8 fL (7.4-10.4); PLATELET COUNT 675 10x3/uL (130-400); RBC 3.58 10x6/uL (4.00-5.40); RDW 20.1 % (11.5-14.5); WBC 16.2 10x3/uL (4.8-10.8)
[2020-07-09 07:12] LABS: CALC OSMOLALITY 268 mosm/kg (275-300); CALCIUM 7.5 mg/dL (8.5-10.1); CARBON DIOXIDE 25.1 mmol/L (21.0-32.0); CHLORIDE - SERUM 104 mmol/L (98-107); CREATININE - SERUM 0.7 mg/dL (0.6-1.3); GLUCOSE 78 mg/dL (74-106); SODIUM 136 mmol/L (136-145); UREA NITROGEN 7 mg/dL (7-18); eGFR NON AFRICAN AMERICAN 85 mL/min (90-120)
[2020-07-09 07:13] LABS: MCV 76.3 fL (80.0-100.0)
[2020-07-09 09:52] VITALS: BP 155/78
[2020-07-09 13:23] VITALS: BP 172/70
[2020-07-09 17:49] VITALS: BP 144/69
--- NOTE | 2020-07-10 01:21 | NUR ---
IN AND OUT CATH PERFORMED ON INCONTINENT PT TO OBTAIN URINE SAMPLE FOR ORDERED STUDIES. DELIVERED TO LAB.
[2020-07-10 01:44] LABS: BILIRUBIN NEGATIVE (NEGATIVE); KETONE NEGATIVE (NEGATIVE); NITRITE NEGATIVE (NEGATIVE); UROBILINOGEN NORMAL (NORMAL)
[2020-07-10 06:06] LABS: CALC OSMOLALITY 269 mosm/kg (275-300); CALCIUM 7.9 mg/dL (8.5-10.1); CARBON DIOXIDE 25.4 mmol/L (21.0-32.0); CHLORIDE - SERUM 104 mmol/L (98-107); CREATININE - SERUM 0.7 mg/dL (0.6-1.3); POTASSIUM - SERUM 4.2 mmol/L (3.5-5.1); SODIUM 137 mmol/L (136-145); UREA NITROGEN 8 mg/dL (7-18); eGFR NON AFRICAN AMERICAN 85 mL/min (90-120)
[2020-07-10 06:12] LABS: GLUCOSE 65 mg/dL (74-106)
[2020-07-10 06:18] LABS: BASOPHILS 0.3 % (0-2); EOSINOPHILS 0.7 % (0-7); HEMATOCRIT 27.7 % (36.0-48.0); HEMOGLOBIN 8.6 g/dL (12-16); IMMATURE GRANULOCYTES 0.8 % (0-5); LYMPHOCYTES 16.1 % (15-50); MCH 23.2 pg (26.0-34.0); MCV 74.7 fL (80.0-100.0); MEAN PLATELET VOLUME 8.6 fL (7.4-10.4); MONOCYTES 16.2 % (2-11); NEUTROPHILS 65.9 % (40-80); PLATELET COUNT 687 10x3/uL (130-400); RBC 3.71 10x6/uL (4.00-5.40); RDW 20.1 % (11.5-14.5)
--- NOTE | 2020-07-10 06:18 | NUR ---
BLOOD SUGAR 65 WITH AM LABS. GAVE 8 OZ ORANGE JUICE.
[2020-07-10 06:19] LABS: WBC 11.3 10x3/uL (4.8-10.8)
--- NOTE | 2020-07-10 06:19 | NUR ---
CHANGED PADS AND CLEANSED PT AFTER INCONTINENT BM AND URINE. POSITIONED FOR COMFORT.
--- NOTE | 2020-07-10 07:30 | NUR ---
AWAKE AND ALERT. ORIENTED X3. NO C/O AT THIS TIME. LUNGS ARE CLEAR BILATERALLY, NO COUGH NOTED. SKIN IS INTACT WITHOUT REDNESS. IV TO RIGHT WRIST IS PATENT WITHOUT REDNESS AT INSERTION SITE. DENIES NEEDS.
--- NOTE | 2020-07-10 09:31 | NUR ---
ATE ALL OF BREAKFAST. TOOK AM MEDS WITHOUT DIFFICULTY. DENIES NEEDS.
[2020-07-10 10:00] VITALS: BP 144/66
--- NOTE | 2020-07-10 12:00 | NUR ---
FSBS 179. GIVEN 12 UNITS SUBQ PER SS. LUNCH SERVED IN ROOM.
[2020-07-10 12:42] VITALS: BP 171/70
--- NOTE | 2020-07-10 15:52 | NUR ---
PATIENT AWOKE FROM A SOUND SLEEP VERY CONFUSED. SHE DIDN;T KNOW WHY SHE WAS ALONE OR WHERE THIS PLACE WAS. MUCH CLAMER AFTER I SAT AND TALKED WITH HER FOR A FEW MINUTES. WILL MONITOR.
[2020-07-10 17:39] VITALS: BP 142/65
--- NOTE | 2020-07-10 18:29 | NUR ---
ATE ONLY A SMALL PART OF SUPPER. DENIES NEEDS. NO CHANGES NOTED..
--- NOTE | 2020-07-10 19:00 | NUR ---
BEDSIDE REPORT RECEIVED AND CARE OF PT ASSUMED. CALL LIGHT ON AND PT REQUESTING TO HAVE INCONTINCE PADS CHANGED. CLEANSED PT AND CHANGED ALL PADS. POSITION FOR COMFORT.
[2020-07-10 20:00] VITALS: BP 133/60
--- NOTE | 2020-07-10 20:17 | NUR ---
HS MEDICATIONS GIVEN TO INCLUDE NORCO PO PER REQUEST FOR PAIN. WILL CONTINUE TO MONITOR FOR NEEDS.
--- NOTE | 2020-07-10 21:05 | NUR ---
CHANGED ALL BEDPADS AND CLEANSED PT AFTER INCONTINENCE OF BOWEL AND BLADDER. POSITIONED IN BED FOR COMFORT.
[2020-07-11] VITALS: BP 152/68
[2020-07-11 04:00] VITALS: BP 119/37
[2020-07-11 06:34] LABS: HEMATOCRIT 28.2 % (36.0-48.0); HEMOGLOBIN 8.7 g/dL (12-16); MCH 23.3 pg (26.0-34.0); MCHC 30.9 g/dL (31.0-37.0); MCV 75.6 fL (80.0-100.0); MEAN PLATELET VOLUME 8.9 fL (7.4-10.4); PLATELET COUNT 675 10x3/uL (130-400); RBC 3.73 10x6/uL (4.00-5.40); RDW 20.4 % (11.5-14.5); WBC 8.9 10x3/uL (4.8-10.8)
[2020-07-11 06:41] LABS: ANION GAP 11.9 mmol/L (8-16); CALCIUM 8.1 mg/dL (8.5-10.1); CARBON DIOXIDE 25.5 mmol/L (21.0-32.0); CREATININE - SERUM 0.8 mg/dL (0.6-1.3); POTASSIUM - SERUM 4.4 mmol/L (3.5-5.1)
--- NOTE | 2020-07-11 06:47 | NUR ---
BLOOD SUGAR 54 WITH LABS. GAVE 8 OZ ORANGE JUICE.
[2020-07-11 06:59] LABS: ELLIPTOCYTES OCC; EOSINOPHILS 1 % (0-7); LYMPHOCYTES 15 % (15-50); MONOCYTES 2 % (2-11); NEUTROPHILS 82 % (40-80); PLATELET ESTIMATE INCREASED; POIKILOCYTOSIS OCC
[2020-07-11 07:00] LABS: ANISOCYTOSIS OCC; SCHISTOCYTES OCC
[2020-07-11 09:17] VITALS: BP 110/59
[2020-07-11 13:08] VITALS: BP 140/77
[2020-07-11 17:29] VITALS: BP 136/64
--- NOTE | 2020-07-11 19:00 | NUR ---
BEDSIDE REPORT RECEIVED AND CARE OF PT ASSUMED. PT LYING IN SUPINE POSITION WITH EYES CLOSED. IV TO RIGHT FA SALINE LOCKED.
[2020-07-11 20:00] VITALS: BP 137/65
--- NOTE | 2020-07-11 21:06 | NUR ---
HS MEDICATIONS GIVEN. WILL CONTINUE TO MONITOR FOR NEEDS.
[2020-07-12] VITALS: BP 124/64
[2020-07-12 04:00] VITALS: BP 142/69
[2020-07-12 06:33] LABS: ANION GAP 11.7 mmol/L (8-16); CALCIUM 8.1 mg/dL (8.5-10.1); CARBON DIOXIDE 26.6 mmol/L (21.0-32.0); CREATININE - SERUM 0.8 mg/dL (0.6-1.3); POTASSIUM - SERUM 4.3 mmol/L (3.5-5.1)
[2020-07-12 06:38] LABS: HEMATOCRIT 27.5 % (36.0-48.0); HEMOGLOBIN 8.6 g/dL (12-16); MCH 23.4 pg (26.0-34.0); MCHC 31.3 g/dL (31.0-37.0); MCV 74.7 fL (80.0-100.0); MEAN PLATELET VOLUME 8.7 fL (7.4-10.4); PLATELET COUNT 674 10x3/uL (130-400); RBC 3.68 10x6/uL (4.00-5.40); RDW 19.9 % (11.5-14.5); WBC 9.3 10x3/uL (4.8-10.8)
[2020-07-12 07:13] LABS: EOSINOPHILS 3 % (0-7); LYMPHOCYTES 26 % (15-50); MONOCYTES 2 % (2-11); NEUTROPHILS 68 % (40-80)
[2020-07-12 07:14] LABS: ANISOCYTOSIS OCC; PLATELET ESTIMATE INCREASED
[2020-07-12 09:27] VITALS: BP 117/55
--- NOTE | 2020-07-12 13:25 | NUR ---
C/O PAIN IN LOWER BACK AND LEFT HIP DUE TO SITTING UP IN CHAIR FOR 1HR 15MIN. TREATED WITH REST AND PRN PAIN MED. CONTINUING TO MONITOR
[2020-07-12 13:45] VITALS: BP 119/59
[2020-07-12 17:48] VITALS: BP 120/57
--- NOTE | 2020-07-12 18:56 | NUR ---
OT NOTE: PT COMPLETED SUPINE TO SIT WITH MOD A. PT COMPLETED SIT TO STAND WITH MOD A. PT COMPLETED UE AROM WITH FUNCTIONAL TASKS. [phone] ALFONZO FLORES COTA
--- NOTE | 2020-07-12 19:00 | NUR ---
BEDSIDE REPORT RECEIVED AND CARE OF PT ASSUMED. PT LYING IN SUPINE POSITION WITH EYES CLOSED. IV TO RIGHT FA SALINE LOCKED. WILL MONITOR FOR NEEDS.
[2020-07-12 20:28] VITALS: BP 126/53
--- NOTE | 2020-07-12 20:49 | NUR ---
HS MEDICATIONS GIVEN. WILL CONTINUE TO MONITOR FOR NEEDS.
--- NOTE | 2020-07-12 21:29 | NUR ---
BEDPADS CHANGED DUE TO INCONTINCE. PT CLEANSED IN LONA AREA AND MALIA'S PASTE APPLIED. POSITIONED FOR COMFORT.
[2020-07-13 00:24] VITALS: BP 136/72
[2020-07-13 04:51] VITALS: BP 105/52
--- NOTE | 2020-07-13 06:40 | NUR ---
FSBS 59 THIS AM. GAVE 8 OZ ORANGE JUICE. WILL CONTINUE TO MONITOR SYED.
[2020-07-13 08:41] VITALS: BP 108/51
[2020-07-13 13:12] VITALS: BP 116/60
--- NOTE | 2020-07-13 14:05 | MORECARE ---
CASE MANAGEMENT DISCHARGE SUMMARY PATIENT: RODOLFO YEBOAH UNIT: [id number] ADM DATE: 06/27/20 AGE: 80 : 39 SEX: F ROOM/BED: D.2236 AUTHOR: ELIDA TORIBIO PHYSICIAN: REFERRING PHYSICIAN: RONNIE MACIAS MD DATE OF SERVICE: 07/13/20 Discharge Plan Patient Name: RODOLFO YEBOAH Facility: [facility]:[place] : 1940 Planned Disposition: Anticipated Discharge Date: Discharge Date: Expected LOS: Initial Reviewer: [id number] Initial Review Date: 06/28/2020 Generated: 07/13/20 3:04 pm DCP- Discharge Planning Updated by [id number]: Patti Bojorquez on 07/13/20 1:[address] Patient Name: RODOLFO YEBOAH Admission Status: ER Accout number: [id number] Admission Date: 06-27-2020 : 1940 Admission Diagnosis:UNSPECIFIED ABDOMINAL PAIN Attending: RONNIE MACIAS Current LOS: 16 Anticipated DC Date: Planned Disposition: Primary Insurance: MEDICARE A & B Discharge Planning Comments: SPOKE WITH JESSICA AT [facility], THEY SHOULD HAVE A ROOM AVAILABLE FOR PATIENT TOMORROW. 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 CM TO FOLLOW AND ASSIST NEEDED. Biochemistry Technologist: Patti Bojorquez DCP- Discharge Planning Updated by [id number]: Patti Bojorquez on 07/02/20 1:[address] Patient Name: RODOLFO YEBOAH Admission Status: ER Accout number: [id number] Admission Date: 06-27-2020 : 1940 Admission Diagnosis:UNSPECIFIED ABDOMINAL PAIN Attending: RONNIE MACIAS Current LOS: 5 Anticipated DC Date: Planned Disposition: Primary Insurance: MEDICARE A & B Discharge Planning Comments: I SPOKE WITH DWAYNE WITH [facility]. SHE STATES IF PATIENT IS MEDICALLY STABLE SUNDAY THEY SHOULD BE ABLE TO TAKE HER. CM TO FOLLOW AND ASSIST NEEDED. Biochemistry Technologist: Patti Bojorquez DCP- Discharge Planning Updated by [id number]: Patti Bojorquez on 06/28/20 3:[address] Patient Name: RODOLFO YEBOAH Admission Status: ER Accout number: [id number] Admission Date: 06-27-2020 : 1940 Admission Diagnosis: Attending: RONNIE MACIAS Current LOS: 1 Anticipated DC Date: Planned Disposition: Primary Insurance: MEDICARE A & B Discharge Planning Comments: I MET WITH PATIENT'S SON СВТЕЛАНА TODAY. HE STATES HIS MOTHER WILL NEED A SNF WHEN STABLE FOR DISCHARGE. STATES IT IS NOT SAFE FOR HER TO DC TO HOME WHERE SHE IS ALONE. STATES SHE WAS JUST DISCHARGED FROM REHAB ON SUNDAY AND THEN RIGHT BACK TO THE HOSPITAL SUNDAY FOR VOMITING. BENY SIGNED FOR [facility]. I AM FAXING THEM A REFERRAL. CM TO FOLLOW AND ASSIST NEEDED. Biochemistry Technologist: Patti Bojorquez Coverage Notice Reviewer: [id number] - Patti Bojorquez Notice Issued Date-Time: 06/28/2020 16:17 Notice Type: Patient Choice Letter Notice Delivered To: Family Member Relationship to Patient: Son Import Customs Clearing Agent Name: СВЕТЛАНА Delivery Method: HAND - Hand Delivered Aziza Days: Prior Verbal Notification: Recipient Understood Notice: Yes Recipient Signature: Yes Med Rec Note Co-signed by Attending: Coverage Notice Comment: [facility] Last DP export: 07/02/20 1:07 p Patient Name: RODOLFO YEBOAH Page [phone] at 1405 All edits/amendments must be made on the electronic document DICTATION DATE: 07/13/201403 FANCY PACKER: DAMIÁN 07/13/201403 RPT#: [id number] DC DATE: STATUS: ADM IN [facility] [address] [place] [address] END OF REPORT
--- NOTE | 2020-07-13 14:25 | NUR ---
OT NOTE: PT REMAINS VERY LIMITED IN MOBILITY. BED MOB WITH MOD/MAX ASSIST FOR SUPINE TO SIT; MOD/MAX FOR STATIC SITTING BALANCE ON EOB..UNCLEAR IF ITS DUE TO DECREASED TRUNK STRENGTH, BACK PAIN, OR BOTH. PT REPORTS THAT ITS TOO PAINFUL TO SIT UP.. REQUIRES MOD ASSIST X 2 FOR SIT TO STAND .. ONLY ABLE TO TAKE A FEW SIDE STEPS. APPETITE REMAINS POOR.. LIMITED PO INTAKE TODAY FOR BREAKFAST AND LUNCH. NAVJOT CALLAHAN, OTR/L
--- NOTE | 2020-07-13 16:08 | NUR ---
OT NOTE: PT COMPLETED SUPINE TO SIT WITH MAX A. PT EXHIBITED POOR TRUNK CONTROL. PT COMPLETED SIT TO STAND WITH MOD/MAX A. PT COMPLETED UE GRASP/RELEASE FOR INCREASED STRENGTH. [phone] THANK YOU,BRIELLE KEMP
--- NOTE | 2020-07-13 19:15 | NUR ---
PT DENIES NEEDS AT THIS TIME BED IS LOW AND LOCKED AND CALL LIGHT IS IN REACH
[2020-07-13 20:00] VITALS: BP 121/55
[2020-07-14 04:00] VITALS: BP 116/54
--- NOTE | 2020-07-14 06:04 | NUR ---
I have reviewed this patient and I concur with the Shift Assessment completed by the Licensed Practical Nurse today this shift.
--- NOTE | 2020-07-14 06:09 | NUR ---
JUICE PROVIDED FOR LOW GLUCIOSE
--- NOTE | 2020-07-14 09:26 | MORECARE ---
CASE MANAGEMENT DISCHARGE SUMMARY PATIENT: RODOLFO YEBOAH UNIT: [id number] ADM DATE: 06/27/20 AGE: 80 : 39 SEX: F ROOM/BED: D.2236 AUTHOR: ELIDA TORIBIO PHYSICIAN: REFERRING PHYSICIAN: RONNIE MACIAS MD DATE OF SERVICE: 07/14/20 Discharge Plan Patient Name: RODOLFO YEBOAH Facility: [facility]:[place] : 1940 Planned Disposition: Anticipated Discharge Date: Discharge Date: Expected LOS: Initial Reviewer: [id number] Initial Review Date: 06/28/2020 Generated: 07/14/20 10:25 am Comments DCP- Discharge Planning Updated by [email or web address]: Patti Bojorquez on 07/14/20 8:[address] Patient Name: RODOLFO YEBOAH Admission Status: ER Accout number: [id number] Admission Date: 06-27-2020 : 1940 Admission Diagnosis:UNSPECIFIED ABDOMINAL PAIN Attending: RONNIE MACIAS Current LOS: 17 Anticipated DC Date: Planned Disposition: Primary Insurance: MEDICARE A & B Discharge Planning Comments: DC FAXED TO [facility]. RN GIVEN NUMBER TO CALL REPORT. [facility] WILL PICK PATIENT UP AROUND 0930. CM TO FOLLOW AND ASSIST NEEDED. Brazer Furnace: Patti Bojorquez DCP- Discharge Planning Updated by [email or web address]: Patti Bojorquez on 07/13/20 1:[address] Patient Name: RODOLFO YEBOAH Admission Status: ER Accout number: [id number] Admission Date: 06-27-2020 : 1940 Admission Diagnosis:UNSPECIFIED ABDOMINAL PAIN Attending: RONNIE MACIAS Current LOS: 16 Anticipated DC Date: Planned Disposition: Primary Insurance: MEDICARE A & B Discharge Planning Comments: SPOKE WITH JESSICA AT [facility], THEY SHOULD HAVE A ROOM AVAILABLE FOR PATIENT TOMORROW. 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 CM TO FOLLOW AND ASSIST NEEDED. Brazer Furnace: Patti Bojorquez DCP- Discharge Planning Updated by [id number]: Patti Bojorquez on 07/02/20 1:[address] Patient Name: RODOLFO YEBOAH Admission Status: ER Accout number: [id number] Admission Date: 06-27-2020 : 1940 Admission Diagnosis:UNSPECIFIED ABDOMINAL PAIN Attending: RONNIE MACIAS Current LOS: 5 Anticipated DC Date: Planned Disposition: Primary Insurance: MEDICARE A & B Discharge Planning Comments: I SPOKE WITH DWAYNE WITH [facility]. SHE STATES IF PATIENT IS MEDICALLY STABLE SUNDAY THEY SHOULD BE ABLE TO TAKE HER. CM TO FOLLOW AND ASSIST NEEDED. Brazer Furnace: Patti Bojorquez DCP- Discharge Planning Updated by [id number]: Patti Bojorquez on 06/28/20 3:[address] Patient Name: RODOLFO YEBOAH Admission Status: ER Accout number: [id number] Admission Date: 06-27-2020 : 1940 Admission Diagnosis: Attending: RONNIE MACIAS Current LOS: 1 Anticipated DC Date: Planned Disposition: Primary Insurance: MEDICARE A & B Discharge Planning Comments: I MET WITH PATIENT'S SON СВЕТЛАНА TODAY. HE STATES HIS MOTHER WILL NEED A SNF WHEN STABLE FOR DISCHARGE. STATES IT IS NOT SAFE FOR HER TO DC TO HOME WHERE SHE IS ALONE. STATES SHE WAS JUST DISCHARGED FROM REHAB ON SUNDAY AND THEN RIGHT BACK TO THE HOSPITAL SUNDAY FOR VOMITING. BENY SIGNED FOR [facility]. I AM FAXING THEM A REFERRAL. CM TO FOLLOW AND ASSIST NEEDED. Brazer Furnace: Patti Bojorquez Coverage Notice Reviewer: [id number] - Patti Bojorquez Notice Issued Date-Time: 06/28/2020 16:17 Notice Type: Patient Choice Letter Notice Delivered To: Family Member Relationship to Patient: Son Electric Brain Wave Equipment Mechanic Name: СВЕТЛАНА Delivery Method: HAND - Hand Delivered Aziza Days: Prior Verbal Notification: Recipient Understood Notice: Yes Recipient Signature: Yes Med Rec Note Co-signed by Attending: Coverage Notice Comment: [facility] Last DP export: 07/13/20 1:05 pm Patient Name: RODOLFO YEBOAH Page [phone] at 0926 All edits/amendments must be made on the electronic document DICTATION DATE: 07/14/20924 GOVERNMENT AFFAIRS MANAGER: DAMIÁN 07/14/20924 RPT#: [id number] DC DATE: STATUS: ADM IN [facility] [address] [place] [address] END OF REPORT
[2020-07-14 09:36] VITALS: BP 98/50
--- NOTE | 2020-07-14 10:56 | NUR ---
CALLED REPORT TO LARRY CHILDERS AT [facility]. OBED WOODWARD WILL BE HERE TO FIELD CROP GROWER PT AT [phone]
--- NOTE | 2020-07-14 12:19 | NUR ---
TRANSFERRED BY [facility] EMPLOYEE VIA WC/VAN. TOLERATED WELL. NO ACUTE DISTRESS NOTED.
--- NOTE | 2020-07-14 15:31 | MORECARE ---
CASE MANAGEMENT DISCHARGE SUMMARY PATIENT: RODOLFO YEBOAH UNIT: [id number] ADM DATE: 06/27/20 AGE: 80 : 39 SEX: F ROOM/BED: D.2236 AUTHOR: ELIDA TORIBIO PHYSICIAN: REFERRING PHYSICIAN: RONNIE MACIAS MD DATE OF SERVICE: 07/14/20 Discharge Plan Patient Name: RODOLFO YEBAOH Facility: [facility]:[place] : 1940 Planned Disposition: Anticipated Discharge Date: Discharge Date: 07/14/2020 Expected LOS: Initial Reviewer: [id number] Initial Review Date: 06/28/2020 Generated: 07/14/20 4:30 pm Comments DCP- Discharge Planning Updated by [id number]: Patti Bojorquez on 07/14/20 8:[address] Patient Name: RODOLFO YEBOAH Admission Status: ER Accout number: [id number] Admission Date: 06-27-2020 : 1940 Admission Diagnosis:UNSPECIFIED ABDOMINAL PAIN Attending: RONNIE MACIAS Current LOS: 17 Anticipated DC Date: Planned Disposition: Primary Insurance: MEDICARE A & B Discharge Planning Comments: DC FAXED TO [facility]. RN GIVEN NUMBER TO CALL REPORT. [facility] WILL PICK PATIENT UP AROUND 0930. CM TO FOLLOW AND ASSIST NEEDED. Pet Counselor: Patti Bojorquez DCP- Discharge Planning Updated by [id number]: Patti Bojorquez on 07/13/20 1:[address] Patient Name: RODOLFO YEBOAH Admission Status: ER Accout number: [id number] Admission Date: 06-27-2020 : 1940 Admission Diagnosis:UNSPECIFIED ABDOMINAL PAIN Attending: RONNIE MACIAS Current LOS: 16 Anticipated DC Date: Planned Disposition: Primary Insurance: MEDICARE A & B Discharge Planning Comments: SPOKE WITH JESSICA AT [facility], THEY SHOULD HAVE A ROOM AVAILABLE FOR PATIENT TOMORROW. 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 CM TO FOLLOW AND ASSIST NEEDED. Pet Counselor: Patti Bojorquez DCP- Discharge Planning Updated by [email or web address]: Patti Bojorquez on 07/02/20 1:[address] Patient Name: RODOLFO YEBOAH Admission Status: ER Accout number: [id number] Admission Date: 06-27-2020 : 1940 Admission Diagnosis:UNSPECIFIED ABDOMINAL PAIN Attending: RONNIE MACIAS Current LOS: 5 Anticipated DC Date: Planned Disposition: Primary Insurance: MEDICARE A & B Discharge Planning Comments: I SPOKE WITH DWAYNE WITH [facility]. SHE STATES IF PATIENT IS MEDICALLY STABLE SUNDAY THEY SHOULD BE ABLE TO TAKE HER. CM TO FOLLOW AND ASSIST NEEDED. Pet Counselor: Patti Bojorquez DCP- Discharge Planning Updated by [email or web address]: Patti Bojorquez on 06/28/20 3:[address] Patient Name: RODOLFO YEBOAH Admission Status: ER Accout number: [id number] Admission Date: 06-27-2020 : 1940 Admission Diagnosis: Attending: RONNIE MACIAS Current LOS: 1 Anticipated DC Date: Planned Disposition: Primary Insurance: MEDICARE A & B Discharge Planning Comments: I MET WITH PATIENT'S SON СВЕТЛАНА TODAY. HE STATES HIS MOTHER WILL NEED A SNF WHEN STABLE FOR DISCHARGE. STATES IT IS NOT SAFE FOR HER TO DC TO HOME WHERE SHE IS ALONE. STATES SHE WAS JUST DISCHARGED FROM REHAB ON SUNDAY AND THEN RIGHT BACK TO THE HOSPITAL SUNDAY FOR VOMITING. BENY SIGNED FOR [facility]. I AM FAXING THEM A REFERRAL. CM TO FOLLOW AND ASSIST NEEDED. Pet Counselor: Patti Bojorquez Coverage Notice Reviewer: [id number] - Patti Bojorquez Notice Issued Date-Time: 06/28/2020 16:17 Notice Type: Patient Choice Letter Notice Delivered To: Family Member Relationship to Patient: Son Crystal Machining Coordinator Name: СВЕТЛАНА Delivery Method: HAND - Hand Delivered Aziza Days: Prior Verbal Notification: Recipient Understood Notice: Yes Recipient Signature: Yes Med Rec Note Co-signed by Attending: Coverage Notice Comment: [facility] Reviewer: [id number] Traci Bojorquez Notice Issued Date-Time: 07/14/2020 10:03 Notice Type: IM Discharge Notice Notice Delivered To: Patient Relationship to Patient: Crystal Machining Coordinator Name: Delivery Method: HAND - Hand Delivered Aziza Days: Prior Verbal Notification: Recipient Understood Notice: Yes Recipient Signature: Yes Med Rec Note Co-signed by Attending: Coverage Notice Comment: Last DP export: 07/14/20 8:26 am Patient Name: RODOLFO YEBOAH Page [phone] at 1531 All edits/amendments must be made on the electronic document DICTATION DATE: 07/14/201529 CUSTOMER SERVICE ADVOCATE: DAMIÁN 07/14/20 153 RPT#: [id number] DC DATE:07/14/20 STATUS: DIS IN [facility] [address] [place] [address] END OF REPORT
== END 2020-07-14 13:15 | DRG 872 ==
LOC: D.ER 13:48 → D.MS 18:43
PROVIDERS: Family Medicine; ADMIT Family Medicine; ATTEND Family Medicine
DX: A41.9 Sepsis, unspecified organism (principal); N39.0 Urinary tract infection, site not specified; M48.56XA Collapsed vertebra, not elsewhere classified, lumbar region, initial encounter for fracture; K52.9 Noninfective gastroenteritis and colitis, unspecified; E11.9 Type 2 diabetes mellitus without complications; I10 Essential (primary) hypertension; I25.10 Atherosclerotic heart disease of native coronary artery without angina pectoris; M54.16 Radiculopathy, lumbar region; D47.3 Essential (hemorrhagic) thrombocythemia; D50.9 Iron deficiency anemia, unspecified

== ENCOUNTER 2021-03-04 19:56 | Inpatient (IN) | payer MEDICARE, OTHER ==
[~2021-03-04] VITALS: Ht 160 cm; Wt 56.7 kg
[~2021-03-04 19:56] MED LIST changes: +FERROUS SULFAT325 MG PO; +OS-CAL500 MG PO; +ZOLOFT25 MG PO
[2021-03-04 20:28] LABS: BASOPHILS 1.6 % (0-2); EOSINOPHILS 2.1 % (0-7); HEMATOCRIT 33.5 % (36.0-48.0); HEMOGLOBIN 10.9 g/dL (12-16); IMMATURE GRANULOCYTES 0.4 % (0-5); LYMPHOCYTE ABS# 2.75 10x3/uL (1.18-3.74); MCH 27.8 pg (26.0-34.0); MCHC 32.5 g/dL (31.0-37.0); MCV 85.5 fL (80.0-100.0); MEAN PLATELET VOLUME 10.2 fL (7.4-10.4); NEUTROPHIL ABS# 6.01 10x3/uL (1.56-6.13); NEUTROPHILS 58.9 % (40-80); RBC 3.92 10x6/uL (4.00-5.40); WBC 10.2 10x3/uL (4.8-10.8)
[2021-03-04 20:30] LABS: PLATELET COUNT 332 10x3/uL (130-400)
[2021-03-04 20:41] LABS: ANION GAP 14.4 mmol/L (8-16); CALCIUM 8.7 mg/dL (8.5-10.1); CARBON DIOXIDE 24.2 mmol/L (21.0-32.0); CREATININE - SERUM 1.2 mg/dL (0.6-1.3); POTASSIUM - SERUM 4.6 mmol/L (3.5-5.1)
[2021-03-04 20:49] LABS: ALBUMIN 2.5 g/dL (3.4-5.0); APTT 32.5 SECONDS (22.8-39.4); BILIRUBIN - TOTAL 0.14 mg/dL (0.2-1.3); INR 1.13 (0.85-1.17); PROTEIN - SERUM 5.5 g/dL (6.4-8.2); PROTIME 13.4 SECONDS (11.6-15.0)
--- NOTE | 2021-03-04 23:17 | NUR ---
PT TO ROOM 2105 VIA STRETCHER ACCOMPANIED BY HOSPITAL STAFF.
[2021-03-05] MEDS ORDERED: COLACE100 MG PO (01:23)
[2021-03-05] MEDS ORDERED: PLAVIX75 MG PO (01:29)
[2021-03-05 04:35] VITALS: BP 106/55; BMI 22.1
[2021-03-05 04:53] VITALS: BP 109/55
[2021-03-05 06:40] LABS: EOSINOPHILS 2.2 % (0-7); HEMATOCRIT 31.2 % (36.0-48.0); IMMATURE GRANULOCYTES 0.3 % (0-5); LYMPHOCYTE ABS# 2.32 10x3/uL (1.18-3.74); LYMPHOCYTES 23.7 % (15-50); MCH 27.5 pg (26.0-34.0); MCHC 32.1 g/dL (31.0-37.0); MEAN PLATELET VOLUME 10.1 fL (7.4-10.4); MONOCYTES 10.3 % (2-11); NEUTROPHILS 62.5 % (40-80); PLATELET COUNT 304 10x3/uL (130-400); RBC 3.63 10x6/uL (4.00-5.40); RDW 14.1 % (11.5-14.5); WBC 9.8 10x3/uL (4.8-10.8)
[2021-03-05 06:48] LABS: CALCIUM 8.7 mg/dL (8.5-10.1); CARBON DIOXIDE 23.5 mmol/L (21.0-32.0); CREATININE - SERUM 1.3 mg/dL (0.6-1.3); PHOSPHOROUS 4.6 mg/dL (2.5-4.9); POTASSIUM - SERUM 4.5 mmol/L (3.5-5.1)
--- NOTE | 2021-03-05 07:53 | NUR ---
PT RESTING PEACEFULLY, EYES CLOSED, BREATHS EVEN REGULAR AND UNLABORED, NO SIGNS OR SYMPTOMS OF ACUTE DISTRESS NOTED AT THIS TIME. CL INR EACH, SRX2.
[2021-03-05 08:14] VITALS: BP 159/63
--- NOTE | 2021-03-05 09:32 | NUR ---
PT ALERT AND ORIENTED, LYING IN BED WATCHING T/V. PT IS EXTREMELY [place] AND STATES IT IS DUE TO HAVE A BUILD UP OF EARWAX AND THAT SHE HAD IT TREATED YESTERDAY WITH EAR DROPS BUT SHE IS STILL HAVING DIFFICULTY HEARING. WROTE DOWN WORDS FOR OUR CONVERSATION. INFORMED PT OF TENTATIVE PLAN TO HAVE GI SCOPE TODAY TO FIND SOURCE OF BLEEDING. PT VERBALIZES UNDERSTANDING. SPOKE WITH SON ON THE PHONE. CL IN REACH, SRX2.
[2021-03-05 10:08] LABS: HEMATOCRIT 31.6 % (36.0-48.0); HEMOGLOBIN 10.1 g/dL (12-16)
--- NOTE | 2021-03-05 11:40 | NUR ---
I have reviewed this patient and I concur with the Shift Assessment completed by the Licensed Practical Nurse today this shift.
[2021-03-05 12:09] VITALS: BMI 22.1
[2021-03-05 12:24] VITALS: BP 140/60
--- NOTE | 2021-03-05 13:11 | NUR ---
PT AWAKE AND ORIENTED, TECHS REPORT THAT BLOODY URINE IS PRESENT EVEN WITHOUT THE BLOODY STOOL. PT STATES SHE FEELS TIRED BUT OTHERWISE FINE. CL IN REACH, SRX2.
--- NOTE | 2021-03-05 15:26 | NUR ---
SPOKE WITH PTS CUSTODIAL NURSE, NURSE STATES THAT THE PT IS NOT NORMALLY HARD OF HEARING AND HER CURRNT DEAFNESS IS ABNORMAL. STATES SHE HAD THE EAR DROPS FOR WAX BUILD-UP LAST WEEK AND HAS BEEN COMPLAINING OF DIFFICULTY HEARING SINCE, BUT THE CURRENT LEVEL OF INABILITY TO HEAR IS NEW AND WORSENING. PT TO HAVE LIGHT BOWEL PREP TONIGHT AND COLONOSCOPY IN THE MORNING.
[2021-03-05 16:05] LABS: HEMATOCRIT 31.8 % (36.0-48.0)
[2021-03-05 17:26] VITALS: BP 158/55
[2021-03-05 19:21] VITALS: Ht 160 cm; Wt 56.7 kg
[2021-03-05 19:54] VITALS: BP 156/69
[2021-03-06 00:31] VITALS: BP 186/67
[2021-03-06 01:35] LABS: HEMATOCRIT 30.9 % (36.0-48.0); HEMOGLOBIN 9.9 g/dL (12-16)
[2021-03-06 04:44] VITALS: BP 163/70
[2021-03-06 06:17] LABS: BASOPHILS 1.5 % (0-2); EOSINOPHILS 3.7 % (0-7); HEMATOCRIT 30.4 % (36.0-48.0); HEMOGLOBIN 9.5 g/dL (12-16); IMMATURE GRANULOCYTES 0.3 % (0-5); LYMPHOCYTE ABS# 1.38 10x3/uL (1.18-3.74); LYMPHOCYTES 22.4 % (15-50); MCH 27.1 pg (26.0-34.0); MCHC 31.3 g/dL (31.0-37.0); MCV 86.9 fL (80.0-100.0); MEAN PLATELET VOLUME 10.2 fL (7.4-10.4); MONOCYTES 10.7 % (2-11); NEUTROPHIL ABS# 3.79 10x3/uL (1.56-6.13); NEUTROPHILS 61.4 % (40-80); PLATELET COUNT 284 10x3/uL (130-400); RDW 14.3 % (11.5-14.5)
[2021-03-06 06:19] LABS: WBC 6.2 10x3/uL (4.8-10.8)
[2021-03-06 07:12] LABS: ALBUMIN 2.6 g/dL (3.4-5.0); ANION GAP 13.8 mmol/L (8-16); BILIRUBIN - TOTAL 0.12 mg/dL (0.2-1.3); CALCIUM 8.7 mg/dL (8.5-10.1); CARBON DIOXIDE 25.2 mmol/L (21.0-32.0); PHOSPHOROUS 4.1 mg/dL (2.5-4.9); PROTEIN - SERUM 5.5 g/dL (6.4-8.2)
[2021-03-06 07:20] LABS: MAGNESIUM - SERUM 2.7 mg/dL (1.8-2.4)
--- NOTE | 2021-03-06 08:37 | NUR ---
PT GONE FOR COLONOSCOPY WITH SURGICAL TEAM.
[2021-03-06 09:09] VITALS: BP 176/74
[2021-03-06 10:56] LABS: BILIRUBIN NEGATIVE (NEGATIVE); KETONE NEGATIVE (NEGATIVE); NITRITE NEGATIVE (NEGATIVE); UROBILINOGEN NORMAL mg/dL (< 2)
[2021-03-06 12:17] VITALS: BP 166/72
--- NOTE | 2021-03-06 12:27 | NUR ---
PT BACK FROM SURGERY, SPOKE WITH SON ON PHONE UPDATED ON CONDITION. PT CURRENTLY EATING LUNCH WITH NO COMPLAINTS OR CONCERNS NOTED OR STATED. PT ACCIDENTALLY REMOVED I/V, TIP INTACT. WILL RESTART POST LUNCH. CL INR EACH, SRX2. BED ALARM ON AND ACTIVE.
--- NOTE | 2021-03-06 13:45 | NUR ---
PT ALERT AND ORIENTED, LYINGIN BED RESTING PEACEFULLY. BREATHS EVEN/REGULAR AND UNLABORED. NO SIGNS OR SYMPTOMS OF ACUTE DISTRESS NOTED AT THIS TIME. CL IN REACH, SRX2.
[2021-03-06 16:33] VITALS: BP 144/58
--- NOTE | 2021-03-06 18:20 | NUR ---
PT ALERT AND ORIENTED LYING IN BED WACHING T/V POST SUPPER. NO COMPLAINTS OR CONCERNS AT THIS TIME. CL IN REACH, SRX2.
--- NOTE | 2021-03-06 19:02 | OP ---
PATIENT NAME: RODOLFO YEBOAH MEDICAL RECORD: [id number] :38 LOCATION:D.M2 D.2105 ADMISSION DATE:03/06/21 SURGEON: MARCELO TOTH MD DATE OF OPERATION: 03/06/2021 PREOPERATIVE DIAGNOSIS: Lower gastrointestinal bleeding. POSTOPERATIVE DIAGNOSIS: Upper gastrointestinal bleeding. PROCEDURE: Total colonoscopy to cecum. SURGEON: Marcelo Toth MD FIELD REPRESENTATIVES DIRECTOR: None. BLOOD LOSS: Zero cc of new blood loss. COMPLICATIONS: None. The risks and possible complications and alternatives of the procedure were explained to the patient. She elected to proceed. OPERATIVE COURSE: The patient was conveyed to the endoscopy suite electively on 03/06/2021. IV sedation was induced by the anesthesia staff. The patient was placed in the Perez position. A digital rectal examination was performed. A colonoscope was inserted through the anus. It was easily advanced to the cecum. The prep was adequate. Throughout the entire colon, there was melenic material indicating that this is an upper gastrointestinal problem. There was even melenic stool within the cecum. I slowly withdrew the endoscope. A combination of normal imaging and narrow band imaging were utilized. I dragged the folds. The pullback was greater than 18-minute pullback. A retroflex view was obtained in the rectum. I then unretroflexed the scope and removed it under direct vision. I will plan for an EGD tomorrow. TRANSINT:[id number] Voice Confirmation ID: [id number] DOCUMENT ID: [id number] MARCELO TOTH MD at 1902 CC: [id number] DICTATION DATE: 03/06/21 1113 TUBE AND ROD STRAIGHTENER: 03/06/21 1700 ADM IN [facility] [address] [place] [address]
[2021-03-06 20:23] VITALS: BP 137/53
--- NOTE | 2021-03-07 | NUR ---
TELEMETRY REMOVED, PER WEATHER TEACHER.
[2021-03-07 02:59] VITALS: BP 153/59
[2021-03-07 07:29] LABS: CALCIUM 8.5 mg/dL (8.5-10.1); CARBON DIOXIDE 24.2 mmol/L (21.0-32.0); CHLORIDE - SERUM 113 mmol/L (98-107); GLUCOSE 141 mg/dL (74-106); MAGNESIUM - SERUM 2.2 mg/dL (1.8-2.4); PHOSPHOROUS 3.5 mg/dL (2.5-4.9); POTASSIUM - SERUM 3.9 mmol/L (3.5-5.1); SODIUM 146 mmol/L (136-145); eGFR NON AFRICAN AMERICAN 85 mL/min (90-120)
[2021-03-07 07:31] LABS: BASOPHILS 1.2 % (0-2); EOSINOPHILS 2.8 % (0-7); HEMATOCRIT 28.9 % (36.0-48.0); HEMOGLOBIN 9.2 g/dL (12-16); IMMATURE GRANULOCYTES 0.1 % (0-5); LYMPHOCYTE ABS# 2.15 10x3/uL (1.18-3.74); LYMPHOCYTES 29.7 % (15-50); MCH 27.5 pg (26.0-34.0); MCHC 31.8 g/dL (31.0-37.0); MCV 86.5 fL (80.0-100.0); MEAN PLATELET VOLUME 10.2 fL (7.4-10.4); MONOCYTES 10.1 % (2-11); NEUTROPHIL ABS# 4.06 10x3/uL (1.56-6.13); NEUTROPHILS 56.1 % (40-80); PLATELET COUNT 269 10x3/uL (130-400); RBC 3.34 10x6/uL (4.00-5.40); RDW 14.1 % (11.5-14.5); WBC 7.2 10x3/uL (4.8-10.8)
[2021-03-07 07:32] LABS: CALC OSMOLALITY 294 mosm/kg (275-300); CREATININE - SERUM 0.7 mg/dL (0.6-1.3); UREA NITROGEN 17 mg/dL (7-18)
[2021-03-07 09:19] VITALS: BP 162/79; BP 207/84
--- NOTE | 2021-03-07 10:12 | NUR ---
PATIENT LEAVING FOR EGD
--- NOTE | 2021-03-07 12:49 | NUR ---
NURSE CALLS AND GIVES REPORT TO NURSE AT [facility].
[2021-03-07 13:21] VITALS: BP 108/45
--- NOTE | 2021-03-07 13:50 | NUR ---
NURSE REVIEWS DC INSTRUCTIONS WITH PATIENT AND TAKES IV OUT WITH CATH TIP INTACT. PATIENT DENIES PAIN OR NEEDS. CALL LIGHT IN REACH. WAITING FOR TRANSPORT.
--- NOTE | 2021-03-07 14:00 | NUR ---
PATIENT LEAVING WITH RESIDENTIAL TRANSPORT AT THIS TIME.
== END 2021-03-07 16:02 | DRG 379 ==
LOC: D.ER 19:56 → D.M2 22:30 → OBSVTIME 22:30 → D.M2 03-06 11:49
PROVIDERS: Anesthesiology; Family Medicine; Surgery; ADMIT Emergency Medicine; ATTEND Emergency Medicine
PROC: 0DJD8ZZ Inspection of Lower Intestinal Tract, Via Natural or Artificial Opening Endoscopic (ICD-10-PCS; principal; 2021-03-06 08:13)
PROC: 0DJ08ZZ Inspection of Upper Intestinal Tract, Via Natural or Artificial Opening Endoscopic (ICD-10-PCS; 2021-03-07)
DX: K92.1 Melena (principal); I10 Essential (primary) hypertension; E11.9 Type 2 diabetes mellitus without complications; M19.90 Unspecified osteoarthritis, unspecified site; Z85.3 Personal history of malignant neoplasm of breast; E78.5 Hyperlipidemia, unspecified; Z79.4 Long term (current) use of insulin; D64.9 Anemia, unspecified